=== PATIENT | female | born 1975 | race Caucasian/White ===

== ENCOUNTER 2016-04-20 10:50 | Inpatient (IN) | payer MEDICAID ==
[~2016-04-20] VITALS: Ht 162.6 cm; Wt 78.0 kg
--- NOTE | ~2016-04-20 | DS ---
PATIENT'S NAME: ROBERT BREWER [facility] AGE: 40 Y [address] ROOM: [id number] [place], [place] [id number] LOCATION: GPCU ADMIT DATE: 04/20/2016 Discharge Summary DISCHARGE DATE: 04/25/2016 FAMILY PHYSICIAN: Hallie Keenan MD ATTENDING PHYSICIAN: Clarke Huff PRIMARY DIAGNOSES: 1. Alcoholic liver cirrhosis with ascites, decompensated. 2. Pancytopenia. 3. Presumptive spontaneous bacterial peritonitis. 4. History of esophageal varices. 5. Left pleural effusion. 6. Substance abuse. 7. History of alcohol dependence. PRINCIPAL PROCEDURES: Done for the patient include abdominal paracentesis x4 by radiologist and also thoracocentesis by radiologist. LABORATORY DATA: On admission, lactic acid was 2.3, repeat was 1.6. Ammonia on admission was 42, repeat the next day was 45. WBC on admission was 3.3, prior to discharge was 2.1; H and H on admission were 10.0 and 33.1, prior to discharge were 8.9 and 30.7; platelet on admission was 71, prior to discharge was 68. Sodium on admission was 138, prior to discharge was 139; potassium on admission was 4.0, lowest level obtained was 3.4, prior to discharge was 4.5; bicarb on admission was 19, prior to discharge was 21; creatinine on admission was 0.8, prior to discharge was 0.6; BUN was also stable throughout the hospital stay. Liver function tests on admission, AST was 52, prior to discharge was 38; ALT was 33, was stable; alkaline phosphatase was 388 on admission, prior to discharge was 273, total bilirubin was 2.5 on admission, was stable throughout the hospital stay. Magnesium as well as was stable throughout the hospital stay. INR on admission was 1.2, highest level obtained was 1.4, prior to discharge was 1.2. UA: Leukocytes were 25, nitrite was negative, wbc was 0 to 2, bacteria negative, urine drug screen was negative. Amylase was 20, lipase was 61. Pleural fluid analysis; glucose level was 109, protein was 2.1, albumin was 1.0, LDH was 73. Procalcitonin on admission was 0.09, repeat the next day was 0.12. Ascitic fluid: Color yellow, rbc 5,000, wbc 302, neutrophil was 16. Alpha-fetoprotein level is pending. MICROBIOLOGY DATA: Blood culture, no growth up until discharge. HIV test is nonreactive. Urine culture contaminant. Gram stain body fluid, no organisms observed, no growth at 3 days. Pleural fluid, bacteria not observed. No growth at 3 days x2 bottles, and fungal elements not observed. RADIOLOGY DATA: Ultrasound-guided paracentesis was done. Ultrasound of the PATIENT'S NAME: ROBERT BREWER [facility] AGE: 40 Y [address] ROOM: [id number] [place] [id number] LOCATION: GPCU ADMIT DATE: 04/20/2016 Discharge Summary DISCHARGE DATE: 04/25/2016 FAMILY PHYSICIAN: Hallie Keenan MD ATTENDING PHYSICIAN: Clarke Huff abdomen is reported as cirrhosis with splenomegaly and ascites, cholelithiasis without ductal dilatation. Chest x-ray, large left pleural effusion with left basilar consolidation or atelectasis. There is mass effect pushing the heart to the right. Fullness at the left hilum. Consider CT to further evaluate. CT of chest and abdomen is reported as severe cirrhosis with splenomegaly and massive ascites. Very large left pleural effusion. Quite extensive varices in the upper left abdomen. X-ray of the chest next day, large left pleural effusion unchanged and had ultrasound-guided paracentesis x2. Chest x-ray post thoracocentesis, no pneumothorax. Repeat chest x-ray, clear right lung as before. Residual plate atelectasis in the left lower lobe just above the diaphragm but no pneumothorax visualized on the left. HOSPITAL COURSE: For history of present illness, please take a look at the H and P, which was done by Dr. Huff. The patient was admitted to Progressive Care Unit for decompensated alcoholic liver cirrhosis with massive ascites. On the first day of the hospital stay, the patient did get an abdominal paracentesis done, which drained out about 2900 mL and also did get a GI consult, who agreed with the abdominal paracentesis. The patient was presumptively also started on antibiotics of Levaquin for a presumptive spontaneous bacterial peritonitis though the peritoneal fluid analysis showed no growth up until discharge except for the white blood cell count, which was around 303. Neutrophil differential was normal. The patient also did get a Pulmonary consult for a large left pleural effusion, which was also drained under ultrasound guidance by the radiologist and about 1600 mL of fluid was drained out. Following the left thoracocentesis, the patient did complain of pleuritic chest pain, which was controlled with IV morphine. Subsequent day, the patient did get another abdominal paracentesis done, during which it did drain out 3700 mL of ascitic fluid. The procedure was well tolerated by the patient without intraoperative or postop complication. Following each abdominal paracentesis, she was given albumin. By the third day of the hospital stay, she did get another abdominal paracentesis done, during which time, it drained around 2100 mL of ascitic fluid. She was continued on her diuretics of Lasix and Aldactone. By the next day of the patient's hospital stay, she began to ambulate on the hallway. She had no problem with confusion throughout her hospital stay. Her bowels were moving pretty good with her lactulose. A day prior to discharge, she was started on MS Contin, which helped to control her pleuritic chest pain as well as her intermittent abdominal pain with less need for morphine. On the day of discharge, she had her fourth abdominal paracentesis done. Procedure was well tolerated by the patient, and thereafter, she was discharged home after vital signs were PATIENT'S NAME: ROBERT BREWER [facility] AGE: 40 Y [address] ROOM: [place] [id number] LOCATION: GPCU ADMIT DATE: 04/20/2016 Discharge Summary DISCHARGE DATE: 04/25/2016 FAMILY PHYSICIAN: Hallie Keenan MD ATTENDING PHYSICIAN: Clarke Huff. DISCHARGE INSTRUCTIONS: Includes 1500 mL per day of fluid restriction and PCP followup. She is to follow up with Dr. Keenan, who is going to be her new PCP in the next 3 to 4 days and GI Clinic followup in the next 1 week. They are planning to possibly do an EGD to evaluate the patient for probably an esophageal stricture. MEDICATIONS ON DISCHARGE: 1. Amitriptyline 150 mg p.o. q.h.s. 2. Clonidine 0.1 mg every 12 hours. 3. Iron sulfate 325 mg p.o. 3 times daily. 4. Folic acid 1 mg p.o. daily. 5. Lactulose 45 mL 4 times daily. 6. Propranolol 10 mg p.o. twice daily. 7. Lasix 40 mg p.o. q.a.m., dose change. 8. Levaquin 750 mg p.o. daily, maintenance antibiotic for spontaneous bacterial peritonitis. 9. Prilosec 20 mg p.o. twice daily. 10. K-Krystin 40 mEq p.o. q.a.m. 11. Rifaximin 550 mg p.o. twice daily. 12. Aldactone 100 mg p.o. daily. 13. Florastor 250 mg p.o. twice daily. 14. Topamax 25 mg p.o. twice daily. 15. Venlafaxine 75 mg p.o. twice daily. 16. Tramadol 50 mg p.o. q.8 hours p.r.n. 17. Albuterol 2 puffs nebs every 6 hours p.r.n. 18. MS Contin 15 mg p.o. daily p.r.n., new medication. 19. Thiamine 100 mg p.o. daily. DISPOSITION: She is going to be discharged home with Home Health. MD NEIDA CHUA/kwesi /[id number] d: 04/26/16 0119 t: 04/30/16 2223, DISCHARGE SUMMARY
--- NOTE | ~2016-04-20 | CON ---
PATIENT'S NAME: [facility] AGE: 40 Y [address] ROOM: [id number] [place], [place] [id number] [facility] ADMIT DATE: 04/20/2016 Consultation DISCHARGE DATE: FAMILY PHYSICIAN: PHYSICIAN, UNKNOWN ATTENDING PHYSICIAN: REBEKA MINOR REFERRING PHYSICIAN: Dayanara Trammell APRN REASON FOR CONSULTATION: Possible spontaneous bacterial peritonitis. HISTORY OF PRESENT ILLNESS: The patient is a pleasant 40-year-old white female who has a longstanding history of alcoholism. She states she has been sober for the last one year. She presents today with complaints of abdominal distention. She was suspected to have SBP and has been admitted for further management. These symptoms started about 24 hours ago. Her history dates back to at least 10 years ago. She was found to have liver cirrhosis. According to her, extensive workup was done. This was negative according to her for hepatitis. She also said she had liver biopsy done. Over the course of the last decade or so, she has had multiple admissions. She has had episodes of what appears to be spontaneous bacterial peritonitis. There is a questionable history of encephalopathy. She also has had upper GI bleeding and endoscopic evaluation and band ligation done in the past. She is currently managed in [place] in [facility] as well as [place]. Since this [place], she has had a very stormy course with multiple admissions for GI bleeding as well as possible episodes of encephalopathy. We have requested records of that for further review. At this time, the patient has no melena. She has not had any mental status changes. ALLERGIES: PENICILLIN AND SULFA. CURRENT MEDICATIONS: Include folic acid, potassium chloride, Xifaxan, omeprazole, furosemide, topiramate, amitriptyline, venlafaxine, vitamins, ProAir, propranolol, clonidine, tramadol p.r.n., Isordil, spironolactone, and lactulose. PAST SURGICAL HISTORY: Significant for internal fixation of lower extremity. She has also had umbilical hernia operated upon in the past. FAMILY HISTORY: She does not know much about her family history. She thinks her grandfather may have had some cancer, although she is not sure. She thinks her biologic father may have had some form of liver disease, but again she is not sure PATIENT'S NAME: [facility], [facility] AGE: 40 Y [address] ROOM: [id number] [place], [place] [address] LOCATION: GPCU ADMIT DATE: 04/20/2016 Consultation DISCHARGE DATE: FAMILY PHYSICIAN: PHYSICIAN, UNKNOWN ATTENDING PHYSICIAN: REBEKA MINOR about that. REVIEW OF SYSTEMS: She denies any history of cardiac disease. In addition, a 10-point review of system was done. This was found to be negative other than what was mentioned in the history of present illness and past medical history. PHYSICAL EXAMINATION: GENERAL: Today, she is alert and awake. She has no flapping tremors. No pallor, no icterus. VITAL SIGNS: She weighs 183 pounds. Vital signs done in the emergency room show a pulse of 94 per minute, respirations 24, temperature is 101.5, blood pressure is 119/59. HEAD AND ENT: Oral cavity is normal. Normocephalic. NECK: No masses are felt. No thyromegaly is felt. CARDIOVASCULAR: She does have a systolic ejection murmur over the aortic area. No carotid bruits are heard. Does reveal peripheral edema. MUSCULOSKELETAL: No obvious deformities are seen, however, she does have peripheral edema. CHEST: Good air entry bilaterally. No wheezing. No rhonchi. ABDOMEN: She is massively distended. She has dullness. She has dull flanks. She does have a scar from the previous umbilical hernia repair. LABORATORY DATA: Labs done today and ultrasound of the abdomen was done. It shows gallbladder with numerous gallstones. Biliary tree was normal. Spleen is grossly enlarged at 21 cm. Liver is fairly cirrhotic but no focal masses are seen. She had fluid cell count done, which shows a WBC of 303 16% neutrophils, and 30% lymphocytes, 46% monocytes. Albumin is 0.6 with serum albumin of 2.8. The serum ascitic albumin fluid gradient is 2.2, which is greater than 1.1, and suggestive of portal hypertension. She had CT chest done that showed a left pleural effusion and massive ascites. She had ultrasound guided paracentesis done, 2900 mL of dark fluid was removed. UA is essentially unremarkable. Influenza A and B is negative. Procalcitonin is 0.09, which is upper limit of normal. CBC shows WBC is 3.3, hemoglobin 10, hematocrit 33.1, platelet count is 71, INR is 1.2. Complete metabolic screen shows sodium 138, potassium 4.0, chloride is 105, bicarb is 19, BUN is 9, creatinine is 0.8, albumin is 2.8, bilirubin is 2.5, ALT of 33, AST is 52, alkaline phosphatase is 33. Venous ammonia is high at 42. Lactate is high at 2.3. IMPRESSION: The patient with a history of decompensated cirrhosis, likely alcohol induced. Presenting now with massive ascites. The ascitic fluid does not support a diagnosis of SBP, however, she has severe abdominal pain. I would suggest that we obtain serum, amylase, lipase. She does have a history of gallstones. Her PATIENT'S NAME: ROBERT BREWER [facility] AGE: 40 Y [address] ROOM: [id number] [place] [id number] LOCATION: GPCU ADMIT DATE: 04/20/2016 Consultation DISCHARGE DATE: FAMILY PHYSICIAN: PHYSICIAN, UNKNOWN ATTENDING PHYSICIAN: REBEKA MINOR increased bilirubin is likely because of liver parenchymal disease. However, biliary pathology cannot be ruled out. We will obtain her old records and other workup from the other facilities. In the meanwhile, she will continue with the antibiotics. She has been currently placed on levofloxacin, which is okay. The patient has massive ascites. We should continue to perform paracentesis p.r.n. We will also give her albumin at the time of this paracentesis. Her urine output needs to be carefully monitored. She also needs to be carefully monitored for HRS resulting because of SBP. Thank you once again for the courtesy of this consultation. We will be happy to follow the patient along with you. MD ARNIE YOUSIF/kwesi /[id number] d: 04/21/162 t: 04/21/16 1824, CONSULTATION REPORT
--- NOTE | ~2016-04-20 | HP ---
PATIENT'S NAME: ROBERT BREWER [facility] AGE: 40 Y [address] ROOM: [id number] [place], [place] [address] LOCATION: GPCU ADMIT DATE: 04/20/2016 History & Physical DISCHARGE DATE: FAMILY PHYSICIAN: PHYSICIAN, UNKNOWN ATTENDING PHYSICIAN: REBEKA MINOR DATE OF SERVICE: CHIEF COMPLAINT: Shortness of breath, associated with worsening ascites and diffuse abdominal pain. HISTORY OF PRESENT ILLNESS: This is a 40-year-old female with a known history of ascites, with a prior esophageal variceal bleeding in the past as well as the multiple spontaneous bacterial peritonitis episodes in the past according to the patient, treated in [place], [place]. According to the patient, her last episode of spontaneous bacterial peritonitis was a year ago, she is not sure which month. Last time, she had an esophageal variceal bleeding was in January 2016. She says that she gets regular paracentesis, usually twice a month, according to the patient. The patient is somewhat poor historian and does not know much about her past medical history or the exact days of events. Her primary surgical services manager, Dr. Rob York in [place], [place]. The story is that the patient says that last night she started feeling this pain in her abdomen diffusely associated with shortness of breath, some nausea, and some headache, but she did not vomit. Her ascites has been getting progressively bigger over the last few days. Because of the worsening shortness of breath, associated with diffuse abdominal pain and worsening ascites, the patient came here today for evaluation. The patient is alert and oriented x3. The patient denies any other symptoms or complaints. She denies any melena, hematochezia, hematemesis, coffee-grounds emesis, hematuria, or any recent GI bleeding except in January last year according to the patient. Over here currently when she arrived to our emergency room, her ammonia was 42, white blood cell 3.3, hemoglobin 10.0, hematocrit 33.1, platelets 71, lactic acid 2.3. Kidney function normal, creatinine 0.8, BUN 9, GFR more than 60. INR 1.2. Urinalysis was negative for UTI. The patient did have a fever here in the emergency room on arrival with a 101.3, heart rate 94, blood pressure 140/80, respiration rate was 18, saturation was 97% on room air. Examination in the emergency room was remarkable for a soft abdomen with visible moderate to large ascites and diffuse pain to palpation. However, there is no abdominal rigidity. I requested to have paracentesis performed which was already performed by the Radiology and 2.9 L were removed and also PATIENT'S NAME: ROBERT BREWER [facility] AGE: 40 Y [address] ROOM: [place] [address] LOCATION: GPCU ADMIT DATE: 04/20/2016 History & Physical DISCHARGE DATE: FAMILY PHYSICIAN: PHYSICIAN, UNKNOWN ATTENDING PHYSICIAN: REBEKA MINOR ascitic fluid was also sent for studies. The patient has allergy to penicillin, to sulfa from which she gets severe hives, therefore IV Levaquin was given right after the paracentesis. Currently, the patient came back from the paracentesis and we will be getting 8 g/L of ascitic fluid removal, therefore she required 25 g of 25% IV albumin. Currently, the patient is feeling much better regarding her shortness of breath, still with abdominal tenderness. Vital signs currently is blood pressure 110/70, heart rate 80, saturation still 98% on room air. She states that dyspnea has significantly improved. Her main complaint right now is abdominal pain. She restarted drinking alcohol about a year ago according to the patient. She was a heavy drinker daily since she was 21 years old. REVIEW OF SYSTEMS: As mentioned in the history of present illness. All other systems reviewed and negative except those mentioned in history of present illness. PAST MEDICAL HISTORY: I have already put a request to obtain medical records from the primary surgical services manager and also from the [facility] in [place] where she was recently hospitalized over there in January 2016, according to the patient for esophageal variceal bleeding. The patient herself told me that she has liver cirrhosis from alcohol use disorder. The patient denies to me any other past medical history at the moment. I will confirm with the medical records from the primary surgical services manager. The patient says that she rarely see her primary care physician. Therefore, I will get records from the [facility] and from the surgical services manager first. SOCIAL HISTORY: The patient was a former cigarette smoker, she quit in January 2016. She used to smoke about half pack per day of cigarettes since she was 13 years old. She was a heavy alcohol drinker before, she quit about a year ago. She used to drink daily with a different kinds of alcohol in large amount and since she was 21 years old. The patient was a former meth user, which she says she used to smoke on and off. Last time, she used was a few years ago. She states she has been sober since few years ago. She denies any IV drug use in the past. FAMILY HISTORY: Father had some kind of heart problem, but she could not remember all the details. Mother is healthy according to the patient. PAST SURGICAL HISTORY: PATIENT'S NAME: ROBERT BREWER [facility] AGE: 40 Y [address] ROOM: [address] [address] [facility] AD[facility] DATE: 04/20/2016 History & Physical DISCHARGE DATE: FAMILY PHYSICIAN: PHYSICIAN, UNKNOWN ATTENDING PHYSICIAN: REBEKA MINOR The patient has the left leg surgery in the past, details are not clear. PHYSICAL EXAMINATION: VITAL SIGNS: At the time of my dictation, temperature 99, blood pressure 110/80, heart rate 80, respirations 16, saturation 98% on room air. Pain 4 to 6/10, diffusely in the abdomen. GENERAL APPEARANCE: Alert and oriented x3. Currently, in no acute distress. HEENT: Pupils equal, round, and reactive to light. Extraocular muscles intact. Icteric sclerae in both eyes. Nasal turbinates are normal bilaterally. The skin is not jaundiced. Dry oral mucosa. NECK: No JVD. No cervical lymphadenopathy. No neck stiffness. RESPIRATORY: Clear to auscultation with decreased breath sounds on the left lower lung. CARDIOVASCULAR: Regular rate and rhythm. Normal S1, S2. No murmur, no rubs, and no gallops. ABDOMEN: Distended with ascites, soft, cannot hear any bowel sounds due to ascites, could not appreciate any mass, diffusely tender to palpation. No abdominal rigidity, no rebound tenderness. EXTREMITIES: No edema in upper or lower extremities. NEUROLOGICAL: Grossly nonfocal. SKIN: No ulcer, no rash, no cyanosis. Skin is not jaundiced. MUSCULOSKELETAL: No joint pain. No muscle pain. Range of motion intact. LABORATORY DATA: Lactic acid 2.3, ammonia 42. White blood cell 3.3, hemoglobin 10, hematocrit 33.1, MCV 98.2, platelets 71, glucose 97, BUN 9, creatinine 0.8. Sodium 138, potassium 4.0 chloride 105, CO2 19, calcium 8.1, total protein 7.8, albumin 2.8, AST 52, ALT 33, alkaline phosphatase 388, total bilirubin 2.5, anion gap 18, globulin 5.0, GFR more than 60. INR 1.2. PTT 31. Urinalysis negative for UTI. Ascitic fluid studies all pending currently. Influenza negative. Procalcitonin 0.09. IMAGING STUDIES: 1. Chest x-ray on admission showed large left pleural effusion with left basilar consolidation or atelectasis. There is mass effect, pushing the heart to the right. Fullness at the left hilum. Consider CT to evaluate. 2. CT of the chest, abdomen, and pelvis with contrast on admission shows severe cirrhosis with splenomegaly and massive ascites. Very large left pleural effusion. Quite extensive varices in the upper left abdomen. ASSESSMENT AND PLAN: 1. Likely spontaneous bacterial peritonitis: I said likely because currently the study from the ascitic fluid paracentesis is pending. PATIENT'S NAME: ROBERT BREWER [facility] AGE: 40 Y [address] ROOM: [place] [address] [facility] AD[facility] DATE: 04/20/2016 History & Physical DISCHARGE DATE: FAMILY PHYSICIAN: , UNKNOWN ATTENDING PHYSICIAN: REBEKA MINOR Based on the polymorphonuclear cells, if more than 250, then we have the diagnosis. Right now, the patient is getting IV Levaquin given that the patient states that she gets severe hives and skin break out from penicillin or sulfa. For the spontaneous bacterial peritonitis, even if the polymorphonuclear cells less than 250, given her presentation and her repeated episodes of spontaneous bacterial peritonitis in the past, I will still treat her for the spontaneous bacterial peritonitis, even if the polymorphonuclear cells are less than 250. The plan will be low- sodium diet, less than 2 g per day. Reconciled her home medication, she takes Aldactone and Lasix at home. I will continue that with holding parameter. Avoid any beta john or any NSAID or any MICHELLE inhibitor or ARBs. She is currently getting IV 25 g of 25% IV albumin given that she got a 2.9 L of ascitic fluid removed by the radiologist today. Blood cultures are pending. Urine culture is pending. I will consult for gastroenterology. I will address the home medication once the medication list is reconciled. I will check another chest x-ray tomorrow in the morning. I will repeat labs in the morning. I will repeat another basic metabolic panel tomorrow, with the kidney function later today. The ascitic fluid study sent for the culture for aerobic and anaerobic. Cell count and differential. Gram stain. Albumin. Protein. Glucose. LDH. Amylase. Bilirubin. I will also get a right upper quadrant ultrasound to better assess the liver. Start her on Florastor 250 mg p.o. b.i.d. And also obtain medical records from her primary surgical services manager and also from [facility] in [place] where she was recently hospitalized, last year. I will also consult pulmonology for a large left pleural effusion to see if she will require thoracocentesis. Pain control with IV morphine p.r.n. I will also get blood type and screen, given that she did have an esophageal variceal bleeding according to the patient back in last year, January 2016, in [facility]. She denies any recent GI bleeding this year. We do not have any prior labs to compare for the baseline for the hemoglobin. I will watch her closely. 2. Deep vein thrombosis prophylaxis: Compression devices. Time spent in care on the day of admission 45 minutes including chart review, interviewing the patient, examining the patient, addressing all the questions and concerns that the patient had. I also went over the plan of care with the patient. I have also spoken to the on-call surgical services manager Dr. Shipley regarding the penicillin allergy and we will go ahead and give the IV Levaquin after the paracentesis. Another option will be ciprofloxacin. The patient is currently getting IV Levaquin. PATIENT'S NAME: ROBERT BREWER [facility] AGE: 40 Y [address] ROOM: [address] [place] [id number] [facility] ADMIT DATE: 04/20/2016 History & Physical DISCHARGE DATE: FAMILY PHYSICIAN: PHYSICIAN, UNKNOWN ATTENDING PHYSICIAN: REBEKA MINOR MD CC/modl /[id number]: [id number] T: [id number] HISTORY & PHYSICAL
--- NOTE | ~2016-04-20 | ER ---
PATIENT'S NAME: [facility] AGE: 40 Y [address] ROOM: [place] [address] LOCATION: GPCU ADMIT DATE: 04/20/2016 ER/Outpatient Report DISCHARGE DATE: FAMILY PHYSICIAN: PHYSICIAN, UNKNOWN ATTENDING PHYSICIAN: REBEKA MINOR Time of arrival: 1050 hours. Time seen: 1100 hours. IDENTIFICATION: A 40-year-old female. CHIEF COMPLAINT: Abdominal pain. HISTORY OF PRESENT ILLNESS: The patient is a 40-year-old female, brought in by ambulance with increasing abdominal distention and pain. The patient was just discharged from [facility] 3 days ago after a prolonged stay and paracentesis of 5 L. The patient has a history of alcoholic liver cirrhosis and has been managed in [place], but came back to live here in [place] with her parents. She has increasing abdominal pain, nausea, vomiting, fever last night and shortness of breath. PAST MEDICAL HISTORY: ALLERGIES: SULFA AND PENICILLIN. PENICILLIN CAUSES HIVES. CURRENT MEDICATIONS: 1. Folic acid 1 mg daily. 2. KCl 20 mEq two tabs daily. 3. Xifaxan 550 mg b.i.d. 4. Omeprazole 20 mg b.i.d. 5. Furosemide 80 mg daily. 6. Topiramate 25 mg b.i.d. 7. Amitriptyline 150 mg at bedtime. 8. Venlafaxine 75 mg b.i.d. 9. CVS B1 100 mg daily. 10. ProAir p.r.n. 11. Propranolol 10 mg b.i.d. 12. Clonidine 0.1 mg b.i.d. 13. Tramadol 50 mg q.8 hours p.r.n. with a max of 150 mg daily. 14. Ferrous sulfate 325 mg t.i.d. 15. Spironolactone 100 mg daily. PATIENT'S NAME: [facility] AGE: 40 Y [address] ROOM: [place] [address] LOCATION: GPCU ADMIT DATE: 04/20/2016 ER/Outpatient Report DISCHARGE DATE: FAMILY PHYSICIAN: PHYSICIAN, UNKNOWN ATTENDING PHYSICIAN: REBEKA MINOR 16. Lactulose 45 mL q.i.d. MEDICAL PROBLEMS: Anxiety, bipolar, insomnia, alcoholic liver cirrhosis, PTSD, arteritis, chronic back pain, herniated disc, narcotic abuse, history of esophageal varices. PRIOR SURGERIES: Esophageal varices banded. We have requested records from [facility] that we have not yet received at the time of this dictation. SOCIAL HISTORY: The patient was living in [place], currently now living here with her parents. Tobacco use stopped before Penny. Alcohol use, last drink one year ago. Drug use, narcotic pain medication that is prescribed, but none other than that and they are trying to wean her off reportedly and then she was supposed to go to [place]. FAMILY HISTORY: Father with heart disease. REVIEW OF SYSTEMS: All systems reviewed and negative other than what is noted in the HPI. PHYSICAL EXAMINATION: VITAL SIGNS: Pulse 94, respirations 24, temp 101.5, blood pressure 119/59, sats 97%. GENERAL: A 40-year-old female, in mild distress. HEENT: Normocephalic, atraumatic. Ears: TMs translucent both ears. Eyes: Pupils equal and reactive to light and accommodation. Extraocular movements intact. The patient does have scleral icterus. Nose: Mucosa pink. No lesions. Mouth: No lesions. Pharynx benign. NECK: Supple. No lymphadenopathy. No nuchal rigidity. LUNGS: Clear to auscultation with diminished breath sounds in the left base. HEART: Regular rate and rhythm. No murmur, rub, or gallop. ABDOMEN: Very protuberant abdomen, distended with ascites. Positive bowel sounds. Diffusely tender to palpation. No rebound or guarding. No CVA tenderness. SKIN: Jaundiced and pale. NEURO: Patient is alert and oriented. No cranial nerve deficit. Motor strength 5/5 throughout. Sensation is intact to light touch. EXTREMITIES: No edema. LABORATORY DATA: UA; specific gravity 1.015, pH 6, leukocytes trace, 0-2 white cells. Culture PATIENT'S NAME: ROBERT BREWER [facility] AGE: 40 Y [address] ROOM: [id number] [place], [place] [address] [facility] AD[facility] DATE: 04/20/2016 ER/Outpatient Report DISCHARGE DATE: FAMILY PHYSICIAN: PHYSICIAN, UNKNOWN ATTENDING PHYSICIAN: REBEKA MINOR pending. Blood cultures x2 pending. Influenza A and B negative. Lactate elevated at 2.3. Sodium 138, potassium 4, chloride 105, CO2 19, BUN 9, creatinine 0.8, blood sugar 94. Albumin low at 2.8, globulin high at 5.0, total bilirubin 2.5, alkaline phosphatase 388, AST 52, ALT 33, ammonia level 42, procalcitonin 0.09. Hemoglobin 10, hematocrit 33.1, platelets 71. White count 3.3, INR 1.2. No recent values available for comparison. Two-view chest x-ray obtained showing large left pleural effusion with mass effect pushing the heart to the right. CT scan abdomen and pelvis with IV contrast; huge left pleural effusion and nearly completely fills the left hemithorax and displaces the mediastinum and heart to the right, small portion of the upper anterior left lung that is still aerated, severe cirrhosis of the liver with splenomegaly and perigastric varices. Massive ascites. Ultrasound-guided paracentesis per Dr. Conde was obtained with removal of 2900 mL of dark brown ascites. Abdominal ultrasound; cirrhosis with splenomegaly and ascites, cholelithiasis without ductal dilatation. IMPRESSION AND PLAN: 1. Systemic inflammatory response. Antibiotics were initiated to include Levaquin. 2. Large left pleural effusion, pneumonia cannot be excluded. The patient was started on Levaquin after cultures all obtained. 3. Bacterial peritonitis with increasing abdominal pain and fluid, therapeutic paracentesis as well as diagnostic fluid sent for culture per Dr. Conde, radiologist. 4. Severe cirrhosis of the liver. 5. Splenomegaly. 6. Quite extensive varices in the left upper abdomen. 7. Cholelithiasis with no ductal dilatation. 8. Thrombocytopenia. 9. Anemia. 10. Leukopenia. The patient remained hemodynamically stable here in the emergency room. She was initiated on IV fluids at 100 mL/h. Albumin 25% in 100 mL at 75 mL/h as ordered by Noel Amaya and patient was taken to the floor in stable but guarded condition. VALENCIA VILLALTA MD CAR/modl /[id number] d: 04/21/167 t: 04/21/16 1512, OUTPATIENT REPORT
--- NOTE | ~2016-04-20 | CON ---
PATIENT'S NAME: [facility] AGE: 40 Y [address] ROOM: [place] [address] LOCATION: GPCU ADMIT DATE: 04/20/2016 Consultation DISCHARGE DATE: 04/25/2016 FAMILY PHYSICIAN: Hallie Keenan MD ATTENDING PHYSICIAN: Clarke Huff DATE OF CONSULTATION: 04/21/2016 REFERRING PHYSICIAN: Dayanara Trammell APRN INDICATION: Pleural effusions. HISTORY OF PRESENT ILLNESS: This is a 40-year-old female with a history of alcoholic cirrhosis and ascites, status post multiple paracenteses, who came in with fever, shortness of breath, and worsening abdominal pain over the last few days. She reports nausea, but no cough, wheezing, hemoptysis, PND, orthopnea, or edema. She has a history of esophageal varices with bleed in January 2016 requiring hospitalization in [place], [place]. She just recently moved to [place] in last four days. She denies any previous history of lung or heart disease. She has a history of tobacco use since the age of 13, but quit in January 2016 using one pack per day. She also has a history of marijuana and methamphetamine use, she last reports using three years ago. She has a history of alcohol abuse since the age of 21, and last used one year ago. Her CT scan shows a large left pleural effusion with atelectasis and massive ascites. She had a paracentesis performed yesterday with 2.9 L removed. She still reports shortness of breath with abdominal pain, and had a slight non- productive cough this morning. PAST MEDICAL HISTORY: Includes 1. Alcoholic liver cirrhosis as well as esophageal varices. 2. Anxiety. 3. Bipolar. 4. PTSD post-traumatic stress disorder. 5. Chronic back pain. 6. Insomnia. FAMILY HISTORY: Her father has heart disease, but no family history of lung disease. SOCIAL HISTORY: PATIENT'S NAME: [facility] AGE: 40 Y [address] ROOM: [place] [address] LOCATION: GPCU ADMIT DATE: 04/20/2016 Consultation DISCHARGE DATE: 04/25/2016 FAMILY PHYSICIAN: Hallie Keenan MD ATTENDING PHYSICIAN: Clarke Huff Immigration History: The patient was previously living in [place], and recently moved here to [place] in the last four days. Habits: She was a previous tobacco user since the age of 13, up until January 2016 smoking one pack per day. She was a previous excessive alcohol user, and her last drink was one year ago. She previously used narcotics of marijuana and methamphetamine, with her last use being over three years ago. ALLERGIES: SEE MAR. MEDICATIONS: See MAR. REVIEW OF SYSTEMS: A twelve-point review of systems was negative except for what is noted in the HPI history of present illness. PHYSICAL EXAMINATION: VITAL SIGNS: Blood pressure was 121/56, pulse was 83, respirations were 17, and temperature was 98.6. She is 96% on room air. GENERAL: This is a 40-year-old female, who is well developed and well nourished, alert and oriented x3, and appears in mild acute distress due to pain. HEENT: Head: Normocephalic and atraumatic. Eyes: Clear. NECK: Supple. No adenopathy. No carotid bruits or JVD jugular venous distention. LUNGS: Decreased breath sounds with dullness on percussion at the left lung base. HEART: Regular rate and rhythm without murmur, gallop, or rub. ABDOMEN: Positive significant distention of the abdomen, as well as diffuse tenderness. EXTREMITIES: No cyanosis, clubbing, or edema. DIAGNOSTIC STUDIES: Bedside ultrasound performed at the bedside revealed a large left pleural effusion without loculation, with free-floating left lung. ASSESSMENT: 1. 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 Question infected. No acute respiratory failure. 2. Ascites is still very significant and precludes the patient from sitting upright. 3. End-stage liver disease due to alcoholic cirrhosis. 4. Fever. PATIENT'S NAME: ROBERT BREWER [facility] AGE: 40 Y [address] ROOM: [address] [place] [address] LOCATION: GPCU ADMIT DATE: 04/20/2016 Consultation DISCHARGE DATE: 04/25/2016 FAMILY PHYSICIAN: Hallie Keenan MD ATTENDING PHYSICIAN: Clarke Huff PLAN: We will schedule her paracentesis first, and then have IR Interventional Radiology subsequently perform a left thoracentesis as well if the patient can then sit upright at that time. We will order pleural fluid studies, and continue with antibiotics for possible SBP spontaneous bacterial peritonitis. Further recommendations will be made, pending the course of her stay. Thank you for the consult and opportunity to participate in patient's care. DAYANARA TRAMMELL APRN FOR [facility] CLARK MD [facility]/modl /[id number] d: 05/09/167 t: 05/10/16 1631, CONSULTATION REPORT
[2016-04-20 12:14] LABS: HEMATOCRIT 33.1 % (33.0-46.0); MCH 29.7 pg (27.0-34.0); MCHC 30.2 gm/dL (32.0-36.5); MCV 98.2 fl (83.0-98.0); PLATELET COUNT 71 K/uL (150-450); RDW-CV 23.5 % (11.9-14.6); WBC 3.3 K/uL (4.0-11.0)
[2016-04-20 12:17] LABS: RBC 3.37 M/uL (3.50-5.50)
[2016-04-20 12:25] LABS: INR - (THERAPEUTIC) 1.2 (0.9-1.1); PROTIME 12.2 SECONDS (9.6-11.1); PTT 31 SECONDS (25-32)
[2016-04-20 12:37] LABS: ALBUMIN 2.8 gm/dL (3.5-5.0); ALK PHOS 388 IU/L (33-138); ALT 33 IU/L (12-78); AST 52 IU/L (10-40); BLOOD UREA NITROGEN 9 mg/dL (6-24); CALCIUM 8.1 mg/dL (8.5-10.5); CHLORIDE 105 mMol/L (96-110); CO2 19 mMol/L (22-32); CREATININE 0.8 mg/dL (0.5-1.1); ESTIMATED GFR (MDRD EQUATION) > 60; SODIUM 138 mMol/L (135-145); TOTAL BILIRUBIN 2.5 mg/dL (0.0-1.5); TOTAL PROTEIN 7.8 g/dL (6.0-8.4)
[2016-04-20 12:52] LABS: ABSOLUTE NEUTROPHIL CT (ANC) 3.1 K/uL (1.8-7.8); BANDED NEUTROPHIL # 0.7 K/uL (0.0-0.1); BANDED NEUTROPHILS % 22 %; LYMPHOCYTE # 0.2 K/uL (0.8-4.0); LYMPHOCYTE % 5 %; SEGMENTED NEUTROPHIL # 2.4 K/uL (1.8-7.8); SEGMENTED NEUTROPHIL % 73 %
[2016-04-20 13:49] LABS: BLOOD URINE NEGATIVE /UL (NEGATIVE); COLOR URINE AMBER (YELLOW); GLUCOSE URINE NEGATIVE (NEGATIVE); KETONE URINE 5 mg/dL (NEGATIVE); LEUKOCYTES URINE 25 /UL (NEGATIVE); NITRITE URINE NEGATIVE (NEGATIVE); PROTEIN URINE 15 mg/dL (NEGATIVE); SPEC GRAVITY URINE 1.015 (1.003-1.035); TURBIDITY URINE CLEAR (CLEAR); UROBILINOGEN URINE 8 mg/dL (NORMAL)
[2016-04-20 14:06] LABS: BACTERIA URINE NEGATIVE (NEGATIVE); EPITHELIAL URINE RARE #/HPF (NEGATIVE); MUCUS URINE 2+ (NEGATIVE); RBC URINE RARE #/HPF (NEGATIVE); WBC URINE 0-2 #/HPF (NEGATIVE)
[2016-04-20 15:03] LABS: PERITONEAL FLUID TURBIDITY CLEAR (CLEAR)
[2016-04-20 15:11] LABS: AMYLASE - FLUID 7 IU/L
[2016-04-20 16:13] LABS: % PERITONEAL FLUID EOS 8 % (0-0); % PERITONEAL FLUID MONO/MACRO 46 % (0-0)
[2016-04-20 16:14] LABS: % PERITONEAL FLUID NEUT 16 % (0-25)
[2016-04-20] MEDS ORDERED: KLOR-CON M2020 MEQ PO (17:19)
[2016-04-20] MEDS ORDERED: INDERAL10 MG PO (17:21)
[2016-04-20] MEDS ORDERED: ALDACTONE100 MG PO (17:21)
[2016-04-20] MEDS ORDERED: VENLAFAXINE HCL75 MG PO (17:22)
[2016-04-20] MEDS ORDERED: XIFAXAN550 MG PO (17:22)
[2016-04-20] MEDS ORDERED: VITAMIN B-1100 M1 PO (17:23)
[2016-04-20] MEDS ORDERED: AMITRIPTYLINE100 MG PO (17:32)
[2016-04-20] MEDS ORDERED: ULTRAM50 MG PO (17:33)
[2016-04-20] MEDS ORDERED: LASIX80 MG PO (17:33)
[2016-04-20] MEDS ORDERED: PRILOSEC20 MG PO (17:34)
[2016-04-20] MEDS ORDERED: FEOSOL325 MG PO (17:34)
[2016-04-20] MEDS ORDERED: FOLIC ACID1 MG PO (17:34)
[2016-04-20] MEDS ORDERED: TOPAMAX25 MG PO (17:35)
[2016-04-20] MEDS ORDERED: PROVENTIL OR V6.7 GM INH (17:36)
[2016-04-20] MEDS ORDERED: LACTULOSE10 GM/15 M PO (17:39)
[2016-04-20] MEDS ORDERED: HALLS3.2 MG (17:40)
[2016-04-20 19:14] LABS: ANION GAP 15.9 (10.0-19.0); BLOOD UREA NITROGEN 9 mg/dL (6-24); CALCIUM 7.8 mg/dL (8.5-10.5); CHLORIDE 103 mMol/L (96-110); CO2 20 mMol/L (22-32); CREATININE 0.8 mg/dL (0.5-1.1); ESTIMATED GFR (MDRD EQUATION) > 60; PHOSPHORUS 2.1 mg/dL (2.5-4.9); POTASSIUM 3.9 mMol/L (3.7-5.1)
[2016-04-20 19:27] LABS: SODIUM 135 mMol/L (135-145)
[2016-04-20 21:13] LABS: AMPHETAMINE NEGATIVE (NEGATIVE); BARBITURATE NEGATIVE (NEGATIVE); COCAINE NEGATIVE (NEGATIVE); OPIATES NEGATIVE (NEGATIVE)
[2016-04-21 04:48] LABS: HEMATOCRIT 27.2 % (33.0-46.0); HEMOGLOBIN 8.1 g/dL (11.0-15.0); MCH 29.9 pg (27.0-34.0); MCHC 29.8 gm/dL (32.0-36.5); MCV 100.4 fl (83.0-98.0); RBC 2.71 M/uL (3.50-5.50); RDW-CV 23.1 % (11.9-14.6); WBC 2.1 K/uL (4.0-11.0)
[2016-04-21 04:50] LABS: PLATELET COUNT 51 K/uL (150-450)
[2016-04-21 04:54] LABS: INR - (THERAPEUTIC) 1.4 (0.9-1.1)
[2016-04-21 04:57] LABS: ALBUMIN 2.5 gm/dL (3.5-5.0); ALK PHOS 273 IU/L (33-138); ALT 27 IU/L (12-78); ANION GAP 17.6 (10.0-19.0); AST 38 IU/L (10-40); BLOOD UREA NITROGEN 10 mg/dL (6-24); CALCIUM 7.6 mg/dL (8.5-10.5); CHLORIDE 104 mMol/L (96-110); CO2 18 mMol/L (22-32); CREATININE 0.8 mg/dL (0.5-1.1); ESTIMATED GFR (MDRD EQUATION) > 60; MAGNESIUM 2.1 mg/dL (1.3-2.6); PHOSPHORUS 3.3 mg/dL (2.5-4.9); POTASSIUM 3.6 mMol/L (3.7-5.1); SODIUM 136 mMol/L (135-145); TOTAL BILIRUBIN 2.5 mg/dL (0.0-1.5); TOTAL PROTEIN 6.4 g/dL (6.0-8.4)
[2016-04-21 05:02] LABS: PROTIME 15.3 SECONDS (9.6-11.1)
[2016-04-21 05:27] LABS: ABSOLUTE NEUTROPHIL CT (ANC) 1.7 K/uL (1.8-7.8); BANDED NEUTROPHIL # 0.8 K/uL (0.0-0.1); BANDED NEUTROPHILS % 37 %; LYMPHOCYTE # 0.4 K/uL (0.8-4.0); LYMPHOCYTE % 21 %; SEGMENTED NEUTROPHIL # 0.9 K/uL (1.8-7.8); SEGMENTED NEUTROPHIL % 42 %
[2016-04-21 16:22] LABS: HEMATOCRIT 31.6 % (33.0-46.0); HEMOGLOBIN 9.5 g/dL (11.0-15.0)
[2016-04-22 04:09] LABS: HEMATOCRIT 29.2 % (33.0-46.0); MCH 30.3 pg (27.0-34.0); MCHC 30.8 gm/dL (32.0-36.5); MCV 98.3 fl (83.0-98.0); MPV 11.7 fl (9.4-12.4); RBC 2.97 M/uL (3.50-5.50); RDW-CV 22.4 % (11.9-14.6); WBC 2.3 K/uL (4.0-11.0)
[2016-04-22 04:16] LABS: PLATELET COUNT 55 K/uL (150-450)
[2016-04-22 04:21] LABS: INR - (THERAPEUTIC) 1.2 (0.9-1.1); PROTIME 12.7 SECONDS (9.6-11.1)
[2016-04-22 04:24] LABS: ANION GAP 13.3 (10.0-19.0); BLOOD UREA NITROGEN 11 mg/dL (6-24); CALCIUM 7.6 mg/dL (8.5-10.5); CHLORIDE 106 mMol/L (96-110); CO2 21 mMol/L (22-32); CREATININE 0.8 mg/dL (0.5-1.1); ESTIMATED GFR (MDRD EQUATION) > 60; MAGNESIUM 2.2 mg/dL (1.3-2.6); POTASSIUM 3.3 mMol/L (3.7-5.1); SODIUM 137 mMol/L (135-145)
[2016-04-22 04:52] LABS: ABSOLUTE NEUTROPHIL CT (ANC) 1.7 K/uL (1.8-7.8); BANDED NEUTROPHIL # 0.6 K/uL (0.0-0.1); BANDED NEUTROPHILS % 28 %; LYMPHOCYTE # 0.5 K/uL (0.8-4.0); LYMPHOCYTE % 20 %; SEGMENTED NEUTROPHIL # 1.1 K/uL (1.8-7.8); SEGMENTED NEUTROPHIL % 46 %
[2016-04-23 04:12] LABS: HEMATOCRIT 33.7 % (33.0-46.0); HEMOGLOBIN 9.8 g/dL (11.0-15.0); MCH 29.3 pg (27.0-34.0); MCHC 29.1 gm/dL (32.0-36.5); MCV 100.6 fl (83.0-98.0); RBC 3.35 M/uL (3.50-5.50); RDW-CV 22.5 % (11.9-14.6); WBC 2.2 K/uL (4.0-11.0)
[2016-04-23 04:15] LABS: PLATELET COUNT 59 K/uL (150-450)
[2016-04-23 04:25] LABS: ANION GAP 14.7 (10.0-19.0); BLOOD UREA NITROGEN 9 mg/dL (6-24); CALCIUM 7.8 mg/dL (8.5-10.5); CHLORIDE 108 mMol/L (96-110); CO2 19 mMol/L (22-32); CREATININE 0.7 mg/dL (0.5-1.1); ESTIMATED GFR (MDRD EQUATION) > 60; MAGNESIUM 2.1 mg/dL (1.3-2.6); POTASSIUM 3.7 mMol/L (3.7-5.1); SODIUM 138 mMol/L (135-145)
[2016-04-23 04:43] LABS: ABSOLUTE NEUTROPHIL CT (ANC) 1.5 K/uL (1.8-7.8); BANDED NEUTROPHIL # 0.6 K/uL (0.0-0.1); BANDED NEUTROPHILS % 26 %; LYMPHOCYTE # 0.4 K/uL (0.8-4.0); LYMPHOCYTE % 19 %; MONOCYTE # 0.1 K/uL (0.0-1.0); SEGMENTED NEUTROPHIL % 44 %
[2016-04-24 04:05] LABS: BASOPHIL % 0.9 %; EOSINOPHIL # 0.1 K/uL (0.0-0.5); EOSINOPHIL % 6.5 %; HEMATOCRIT 31.2 % (33.0-46.0); HEMOGLOBIN 9.6 g/dL (11.0-15.0); LYMPHOCYTE # 0.5 K/uL (0.8-4.0); LYMPHOCYTE % 24.3 %; MCH 29.9 pg (27.0-34.0); MCHC 30.8 gm/dL (32.0-36.5); MCV 97.2 fl (83.0-98.0); MONOCYTE # 0.3 K/uL (0.0-1.0); MONOCYTE % 12.1 %; NEUTROPHIL # (ANC) 1.2 K/uL (1.8-7.8); NEUTROPHIL % 56.2 %; NRBC % 0 /100WBC (0-0.00); PLATELET COUNT 68 K/uL (150-450); RBC 3.21 M/uL (3.50-5.50); RDW-CV 22.2 % (11.9-14.6); WBC 2.1 K/uL (4.0-11.0)
[2016-04-24 04:13] LABS: INR - (THERAPEUTIC) 1.2 (0.9-1.1); PROTIME 12.5 SECONDS (9.6-11.1)
[2016-04-24 04:18] LABS: ANION GAP 16.4 (10.0-19.0); BLOOD UREA NITROGEN 10 mg/dL (6-24); CALCIUM 7.9 mg/dL (8.5-10.5); CHLORIDE 103 mMol/L (96-110); CO2 21 mMol/L (22-32); CREATININE 0.7 mg/dL (0.5-1.1); ESTIMATED GFR (MDRD EQUATION) > 60; MAGNESIUM 2.2 mg/dL (1.3-2.6); POTASSIUM 3.4 mMol/L (3.7-5.1); SODIUM 137 mMol/L (135-145)
[2016-04-25 03:20] LABS: HEMATOCRIT 30.7 % (33.0-46.0); HEMOGLOBIN 8.9 g/dL (11.0-15.0)
[2016-04-25 03:35] LABS: ANION GAP 15.5 (10.0-19.0); BLOOD UREA NITROGEN 13 mg/dL (6-24); CALCIUM 7.9 mg/dL (8.5-10.5); CHLORIDE 107 mMol/L (96-110); CO2 21 mMol/L (22-32); CREATININE 0.6 mg/dL (0.5-1.1); ESTIMATED GFR (MDRD EQUATION) > 60; MAGNESIUM 2.2 mg/dL (1.3-2.6); SODIUM 139 mMol/L (135-145)
[2016-04-25 03:36] LABS: POTASSIUM 4.5 mMol/L (3.7-5.1)
[2016-04-25] MEDS ORDERED: LEVAQUIN750 MG PO (15:49)
[2016-04-25] MEDS ORDERED: FLORASTOR250 MG PO (15:53)
[2016-04-25] MEDS ORDERED: MS CONTIN15 MG PO (15:57)
== END 2016-04-25 17:35 | disposition disaster alternative care site (69) | DRG 372 ==
LOC: GMED 10:50 → GPCU 14:43
PROVIDERS: Family Medicine; Hospitalist; ADMIT Internal Medicine
PROC: 0W9G3ZZ Drainage of Peritoneal Cavity, Percutaneous Approach (ICD-10-PCS; principal; 2016-04-20)
PROC: 0W9G3ZZ Drainage of Peritoneal Cavity, Percutaneous Approach (ICD-10-PCS; 2016-04-21)
PROC: 0W9B3ZX Drainage of Left Pleural Cavity, Percutaneous Approach, Diagnostic (ICD-10-PCS; 2016-04-21)
PROC: 0W9G3ZZ Drainage of Peritoneal Cavity, Percutaneous Approach (ICD-10-PCS; 2016-04-22)
PROC: 0W9G3ZZ Drainage of Peritoneal Cavity, Percutaneous Approach (ICD-10-PCS; 2016-04-25)
DX: K65.2 Spontaneous bacterial peritonitis (principal); D61.818 Other pancytopenia; I85.00 Esophageal varices without bleeding; Z87.891 Personal history of nicotine dependence; K70.31 Alcoholic cirrhosis of liver with ascites; F10.20 Alcohol dependence, uncomplicated; F19.10 Other psychoactive substance abuse, uncomplicated
CPT/HCPCS: A9270; C1751; G0480; J1956; J2270; J2405; J7050; J7060; P9047

== ENCOUNTER → 2016-04-20 | Outpatient (CLI) | payer MEDICAID ==
[~2016-04-20] MED LIST: ALDACTONE100 MG PO; AMITRIPTYLINE100 MG PO; CATAPRES0.1 MG PO; CERTAVITE-ANTI1 EACH PO; DULCOLAX5 MG PO; FEOSOL325 MG PO; FLORASTOR250 MG PO; FOLIC ACID1 MG PO; HALLS3.2 MG; INDERAL10 MG PO; KLONOPIN0.5 MG PO; KLOR-CON M2020 MEQ PO; LACTULOSE10 GM/15 M PO; LAMICTAL25 MG PO; LASIX80 MG PO; LEVAQUIN 750 M750 MG PO; LEVAQUIN750 MG PO; LEVOTHROID (SY25 MCG PO; LOVENOX 8080 MG/0.8 SUB-Q; MS CONTIN15 MG PO; PRILOSEC20 MG PO; PROTONIX40 MG PO; PROVENTIL OR V6.7 GM INH; THIAMINE HCL100 MG PO; TOPAMAX25 MG PO; ULTRAM50 MG PO; VENLAFAXINE HCL75 MG PO; VITAMIN B-1100 M1 PO; XIFAXAN550 MG PO; ZOFRAN4 MG PO
== END | disposition disaster alternative care site (69) ==
LOC: GAMB 10:36 → GMED 10:36
DX: R14.0 Abdominal distension (gaseous) (principal); R19.37 Generalized abdominal rigidity; K74.60 Unspecified cirrhosis of liver; R06.02 Shortness of breath; Z79.2 Long term (current) use of antibiotics; Z79.899 Other long term (current) drug therapy; Z88.0 Allergy status to penicillin; Z88.1 Allergy status to other antibiotic agents
CPT/HCPCS: A0425; A0429

== ENCOUNTER → 2016-04-29 | Outpatient (CLI) | payer MEDICAID | END | disposition disaster alternative care site (69) | LOC: LGSMG 17:16 | DX: K74.60 Unspecified cirrhosis of liver (principal); R18.8 Other ascites ==

== ENCOUNTER 2016-05-07 21:03 | Emergency (ER) | payer MEDICAID ==
--- NOTE | ~2016-05-07 | OR ---
PATIENT'S NAME: ROBERT BREWER [facility] AGE: 40 Y [address] ROOM: [place] [address] LOCATION: ED ADMIT DATE: 05/07/2016 OR/Procedure Report DISCHARGE DATE: 05/07/2016 FAMILY PHYSICIAN: Hallie Keenan MD ATTENDING PHYSICIAN: Davis Mittal SURGEON: Davis Mittal MD LIVESTOCK BUYER: DATE OF PROCEDURE: 05/07/2016 TIME: 2103 hours. The patient was initially seen by Gustavo. I was consulted to perform the procedure. The patient has a history of alcoholic cirrhosis and recurrent ascites. She has had to have peritoneal fluid drained several times in the past. Most recently, about 2 weeks ago, she is in with complaint of a distended abdomen that is causing shortness of breath. On exam, her abdomen is quite distended and tense. Dull to percussion. Minimally tender diffusely. Ultrasound revealed no evidence of adhesions. There was good layer of intraperitoneal fluid overlying any bowel. Paracentesis was performed and approximately 5 L of yellow cloudy peritoneal fluid was drained. The patient had improvement and she tolerated the procedure well. There is no blood loss. DAVIS MITTAL MD JDB/modl /[id number] d: 05/09/16 0437 t: 06/06/16 0954, OPERATIVE SUMMARY
--- NOTE | ~2016-05-07 | ER ---
PATIENT'S NAME: ROBERT [facility] AGE: 40 Y [address] ROOM: [place], [place] [address] LOCATION: ED ADMIT DATE: 05/07/2016 ER/Outpatient Report DISCHARGE DATE: 05/07/2016 FAMILY PHYSICIAN: Hallie Keenan MD ATTENDING PHYSICIAN: Davis Slade CORRECTED PATIENT ACCOUNT INFORMATION 05/12/16 AO Time of Arrival: 2103 hours. Time of Evaluation: 2118 hours. CHIEF COMPLAINT: Abdominal swelling. HISTORY OF PRESENT ILLNESS: This is a 40-year-old female, who presents to the ER, who states she has alcohol-induced liver cirrhosis and she has had increased swelling of her abdomen over the past couple of weeks. The patient states she was just admitted to the hospital for this few weeks ago and she states they had to drain her abdomen 3 times during that hospital stay. She recently moved here from [place] and had been in and out of the hospital in [place] since January. They state that she is needing liver transplant, but she has to go through rehab on her prescription drug use before she can be placed on the transplant list. She does not believe she has been running any fevers. She has had no troubles with urination, but has had some looser stools. Last bowel movement was today. She does feel nauseated from this. She feels like her abdomen is tight and it is making her feel short of breath. She states that she has been using her home medications as directed. She denies any other problems at this time. ALLERGIES: PENICILLIN AND SULFA. MEDICATIONS: Please see medication list nurse's notes. PAST MEDICAL HISTORY: Anxiety, bipolar, insomnia, alcoholic liver cirrhosis, PTSD, arteritis, chronic back pain, herniated disk, narcotic abuse, and history of esophageal varices. PRIOR SURGERIES: Esophageal varices that have been banded. SOCIAL HISTORY: She just moved to [place] to live with her parents. She was living in [facility]. She states her last drink was over a year ago. She is being weaned off PATIENT'S NAME: [facility]ERT [facility] AGE: 40 Y [address] ROOM: [place], [place] [address] LOCATION: ED ADMIT DATE: 05/07/2016 ER/Outpatient Report DISCHARGE DATE: 05/07/2016 FAMILY PHYSICIAN: Hallie Keenan MD ATTENDING PHYSICIAN: Davis Slade her tramadol by her primary care physician. She states she uses no other narcotics at this time. REVIEW OF SYSTEMS: A 10-point review of systems was completed and was negative with the exception as discussed in the HPI. PHYSICAL EXAMINATION: VITAL SIGNS: Height 5 feet and 4 inches stated, weight 88.7 kg taken, blood pressure is 119/71, pulse 74, respirations 26, temperature 99.2 degrees tympanically, and saturations 100% on room air. Adrienne Coma Score is 15. GENERAL: Alert, calm, well-developed female, in moderate distress due to the size of her abdomen. HEENT: Head: Normocephalic. Eyes: Pupils are equal and reactive to light. She does display moist mucous membranes. LUNGS: Clear to auscultation, but she does appear to be short of breath. HEART: Regular rate and rhythm. ABDOMEN: Very distended with ascites. She does have bowel sounds noted on all 4 quadrants. She is diffusely tender to palpation in all 4 quadrants. She has no rebound or guarding noted. SKIN: Her skin is slightly jaundiced and pale. NEURO: Cranial nerves II through XII grossly intact. The patient is alert and oriented. EXTREMITIES: No edema. She does have full range of motion of all limbs. LABORATORY DATA AND X-RAYS: CBC: White count is 1.4, hemoglobin is 10.3, platelets 60, and ANC is 0.9. Pro-time is 12.0. INR is 1.1. Procalcitonin is less than 0.05. CMS: Potassium is 3.5, glucose is 56, calcium 7.8, albumin 2.7, A/G ratio 0.6, alkaline phosphatase is 313, AST is 39, ALT is 27, estimated GFR is 60, ammonia level is 42, and lactate is 1.7. IMPRESSION: 1. Abdominal distention due to ascites from alcohol induced liver cirrhosis. 2. Leukopenia. 3. Anemia. 4. Thrombocytopenia. ASSESSMENT AND PLAN: The patient's chart was reviewed. Discussed the patient's care with Dr. Slade. Dr. Slade also evaluated the patient. Dr. Slade did do an informed consent for paracentesis of her abdomen. Please see his dictation for that procedure. We did start an IV here in the emergency room. The patient did receive 0.5 mg of Dilaudid and 4 mg of Zofran. The patient did tolerate this well. Dr. Slade did remove approximately 5 L of fluid from her abdomen. He PATIENT'S NAME: [facility]ERT [facility] AGE: 40 Y [address] ROOM: [place] [address] LOCATION: ED ADMIT DATE: 05/07/2016 ER/Outpatient Report DISCHARGE DATE: 05/07/2016 FAMILY PHYSICIAN: Hallie Keenan MD ATTENDING PHYSICIAN: Davis Slade did send this down for culture. The patient will be dismissed home. She needs to follow up with her primary care physician in 3 to 7 days, monitor her symptoms closely, and follow up to the emergency room if any of her symptoms worsen. The patient understands and agrees with care. CHUY ANGULO PA-C FOR MD JOELLEN COLEMAN/kwesi /[id number] CORRECTED PATIENT ACCOUNT INFORMATION 05/12/16 AO d: t: 05/12/16 2342, OUTPATIENT REPORT
[~2016-05-07 21:03] MED LIST changes: -CATAPRES0.1 MG PO; -CERTAVITE-ANTI1 EACH PO; -DULCOLAX5 MG PO; -KLONOPIN0.5 MG PO; -LAMICTAL25 MG PO; -LEVAQUIN 750 M750 MG PO; -LEVOTHROID (SY25 MCG PO; -LOVENOX 8080 MG/0.8 SUB-Q; -PROTONIX40 MG PO; -THIAMINE HCL100 MG PO; -ZOFRAN4 MG PO
[2016-05-07 22:13] LABS: HEMATOCRIT 33.5 % (33.0-46.0); HEMOGLOBIN 10.3 g/dL (11.0-15.0); MCH 32.4 pg (27.0-34.0); MCHC 30.7 gm/dL (32.0-36.5); MPV 11.7 fl (9.4-12.4); PLATELET COUNT 60 K/uL (150-450); RBC 3.18 M/uL (3.50-5.50); RDW-CV 23.5 % (11.9-14.6)
[2016-05-07 22:14] LABS: MCV 105.3 fl (83.0-98.0); WBC 1.4 K/uL (4.0-11.0)
[2016-05-07 22:24] LABS: INR - (THERAPEUTIC) 1.1 (0.9-1.1); PTT 30 SECONDS (25-32)
[2016-05-07 22:32] LABS: ALBUMIN 2.7 gm/dL (3.5-5.0); ALK PHOS 313 IU/L (33-138); ALT 27 IU/L (12-78); ANION GAP 13.5 (10.0-19.0); AST 39 IU/L (10-40); BLOOD UREA NITROGEN 8 mg/dL (6-24); CALCIUM 7.8 mg/dL (8.5-10.5); CHLORIDE 109 mMol/L (96-110); CO2 25 mMol/L (22-32); CREATININE 0.7 mg/dL (0.5-1.1); ESTIMATED GFR (MDRD EQUATION) > 60; POTASSIUM 3.5 mMol/L (3.7-5.1); SODIUM 144 mMol/L (135-145)
[2016-05-07 22:39] LABS: TOTAL BILIRUBIN 1.5 mg/dL (0.0-1.5)
[2016-05-07 22:43] LABS: ABSOLUTE NEUTROPHIL CT (ANC) 0.9 K/uL (1.8-7.8); BANDED NEUTROPHIL # 0.1 K/uL (0.0-0.1); BANDED NEUTROPHILS % 7 %; LYMPHOCYTE # 0.3 K/uL (0.8-4.0); LYMPHOCYTE % 22 %; MONOCYTE # 0.1 K/uL (0.0-1.0); SEGMENTED NEUTROPHIL # 0.8 K/uL (1.8-7.8); SEGMENTED NEUTROPHIL % 59 %
[2016-05-07 23:47] LABS: PERITONEAL FLUID TURBIDITY 2+ (CLEAR)
[2016-05-08 00:30] LABS: % PERITONEAL FLUID MONO/MACRO 30 % (0-0); % PERITONEAL FLUID NEUT 23 % (0-25)
== END 2016-05-07 23:33 | disposition disaster alternative care site (69) ==
LOC: GMED 21:03
PROVIDERS: Physician Assistant Medical
PROC: 0W9G3ZZ Drainage of Peritoneal Cavity, Percutaneous Approach (ICD-10-PCS; principal; 2016-05-07)
DX: K70.31 Alcoholic cirrhosis of liver with ascites (principal); R14.0 Abdominal distension (gaseous); D72.819 Decreased white blood cell count, unspecified; D64.9 Anemia, unspecified; D69.6 Thrombocytopenia, unspecified; Z88.0 Allergy status to penicillin; Z88.2 Allergy status to sulfonamides; F31.9 Bipolar disorder, unspecified; F43.10 Post-traumatic stress disorder, unspecified
CPT/HCPCS: C1751; J1170; J2405

== ENCOUNTER 2016-05-10 17:00 | Inpatient (IN) | payer MEDICAID ==
[~2016-05-10] VITALS: Ht 162.6 cm; Wt 83.4 kg
--- NOTE | ~2016-05-10 | HP ---
PATIENT'S NAME: OSMAN ROBERT [facility] AGE: 40 Y [address] ROOM: [place] [address] LOCATION: [facility] ADMIT DATE: 05/10/2016 History & Physical DISCHARGE DATE: FAMILY PHYSICIAN: Hallie Keenan MD ATTENDING PHYSICIAN: SERGE GOLD V DATE OF SERVICE: CHIEF COMPLAINT: Abdominal distention. HISTORY OF PRESENT ILLNESS: The patient is a 40-year-old female with past medical history most significant for alcoholic cirrhosis with recurrent ascites requiring paracentesis. The patient was last seen here in the ER 3 days ago, where she had 5 L of ascites drained. She has developed worsening abdominal distention and discomfort and returned to her baseline today. She was seen by her bead inspector today and was sent to the hospital to rule out spontaneous bacterial peritonitis and to undergo another paracentesis. She denies any fevers, chills, but does admit to abdominal discomfort. No nausea, vomiting, diarrhea, or shortness of breath. REVIEW OF SYSTEMS: All systems have been reviewed and negative aside from pertinent positives mentioned above. PAST MEDICAL HISTORY: Significant for with alcoholic cirrhosis with recurrent ascites. Esophageal varices. At this point, the patient is not on a transplant list, though she has ceased using alcohol. She also has a past medical history of a "muscle disease," which was diagnosed in [place]. SOCIAL HISTORY: Negative for any ongoing toxic habits, though she was a cigarette smoker until January 2016. She also used to use meth. FAMILY HISTORY: Significant for heart disease in her father. CURRENT MEDICATIONS: We are still compiling a list, but she is on, 1. Inderal. PATIENT'S NAME: ROBERT BREWER [facility] AGE: 40 Y [address] ROOM: [place] [id number] LOCATION: [facility] ADMIT DATE: 05/10/2016 History & Physical DISCHARGE DATE: FAMILY PHYSICIAN: Hallie Keenan MD ATTENDING PHYSICIAN: SERGE GOLD V 2. Rifaximin. 3. Lasix. PHYSICAL EXAMINATION: VITAL SIGNS: At this point, her blood pressure is 110s/60s, heart rate is in the 80s, temperature is 97.5, saturating 98% on room air, and respirations 16. GENERAL: Appears as a chronically ill, middle-aged female, in no acute distress. NEUROLOGICAL: Exam is nonfocal. There is no asterixis. EYES: Pupils are equal and reactive to light. LYMPHATIC: No cervical lymphadenopathy. ENDOCRINE: No thyromegaly. LUNGS: Clear to auscultation. HEART: Rate is regular. No appreciable murmurs, gallops, or rubs. GI: Abdomen is severely distended with shifting dullness and diminished bowel sounds. VASCULAR: Bilateral pedal pulses and 2+ lower extremity edema. MUSCULOSKELETAL: Unremarkable. PSYCHIATRIC: Appropriate mood, cognition, and affect. STUDIES: No studies are available as of yet. ASSESSMENT AND PLAN: This is a 40-year-old female who will be admitted with, 1. Rapid reaccumulation of cirrhotic ascites. Per request of Dr. Daly, we will get an urgent paracentesis and obtain cell counts as well as cultures. Depending on cell count, we may decide to treat empirically though at this point, she does not appear to be septic/infected. 2. Volume overload. Per discussion with Dr. Daly, we will continue her on Lasix and hold off on Inderal to facilitate diuretic efficacy. 3. Symptomatic support. We will provide the patient with antiemetics and PPIs. 4. H/O varices: she does not appear to be acutely bleeding Additional management will depend on clinical course. Time dedicated to this patient's encounter is 25 minutes. MD LOPEZK/carlosl PATIENT'S NAME: ROBERT BREWER [facility] AGE: 40 Y [address] ROOM: [place] [address] LOCATION: [facility] ADMIT DATE: 05/10/2016 History & Physical DISCHARGE DATE: FAMILY PHYSICIAN: Hallie Keenan MD ATTENDING PHYSICIAN: SERGE GOLD V /[id number] D: [id number] 17 HISTORY & PHYSICAL
--- NOTE | ~2016-05-10 | DS ---
PATIENT'S NAME: ROBERT BREWER [facility] AGE: 40 Y [address] ROOM: [id number] [place], [place] [address] LOCATION: [facility] ADMIT DATE: 05/10/2016 Discharge Summary DISCHARGE DATE: 05/16/2016 FAMILY PHYSICIAN: Hallie Keenan MD ATTENDING PHYSICIAN: Marquise Mustafa V FINAL DIAGNOSES: 1. End-stage liver disease with decompensated cirrhosis. 2. Massive ascites. 3. Pancytopenia. 4. Depression. 5. Chronic pain. PROCEDURES: Paracentesis, ultrasound-guided paracentesis on 05/12/2016 and 05/16/2016. Please refer to the procedure report for further information. HOSPITAL COURSE: Briefly, the patient was admitted with recurring massive ascites. Please see details of admission and H and P by Dr. Mustafa. Initial paracentesis removed of 4000 mL. The patient was given morphine and fentanyl for pain. We did resume her home medications including MS Contin, this did help for pain. We did increase her Aldactone and Lasix for further management of the ascites. The patient tolerated this well. On the , the patient was seen by GI. Ultrasound of the abdomen with duplex scan was ordered. 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 The patient was started on Lovenox 80 mg subcu twice daily for therapeutic management. The patient continued to wax and wane throughout her stay. We did treat her constipation on the further aggressively with positive results. We did arrange for further paracentesis on the and it was felt that the patient could safely be discharged home after that time. This was accomplished without any further discharge. Plan is for the patient to follow up with [facility] for evaluation for transplant and further aggressive management of her symptoms. The patient was agreeable to this discharge plan and was discharged in stable condition. DIAGNOSTICS: Abdominal duplex scan shows partial thrombosis of the portal vein. LABORATORY STUDIES: On admission; sodium 143, potassium 3.9, chloride 106, bicarb 26, BUN 9, creatinine 0.8, total bilirubin was 1.9, alkaline phosphatase 278, AST 44, and ALT 27. Prior to discharge; sodium was 141, potassium 4.2, chloride 107, bicarb 25, glucose 156, BUN 11, and creatinine 0.8. On admission; white blood cell count was 2.3, hemoglobin was 9.9, hematocrit 32.3, and platelets 70. Upon discharge; white blood cell count was 2.0, hemoglobin 9.9, hematocrit 32.9, and platelet 67. Coags within normal limits throughout her stay. Culture of the paracentesis fluid showed no growth at 3 days. Blood cultures were negative at 5 days. PATIENT'S NAME: ROBERT BREWER [facility] AGE: 40 Y [address] ROOM: [place] [address] LOCATION: [facility] ADMIT DATE: 05/10/2016 Discharge Summary DISCHARGE DATE: 05/16/2016 FAMILY PHYSICIAN: Hallie Keenan MD ATTENDING PHYSICIAN: Marquise Mustafa V DISCHARGE INSTRUCTIONS: The patient is discharged home under the care of Dr. Keenan. Diet is as tolerated. Activity is as tolerated. She will follow up with gastrointestinal Office at [facility] in 1 week. DISCHARGE MEDICATIONS: 1. Amitriptyline 150 mg at bedtime. 2. Clonidine 0.1 mg twice daily. 3. Ferrous sulfate 325 mg daily. 4. Folic acid 1 mg daily. 5. Lasix 40 mg daily. 6. Thiamin 100 mg daily. 7. Topamax 25 mg daily. 8. Effexor 75 mg twice daily. 9. Lactulose 45 mg 4 times daily. 10. Lamictal 25 mg twice daily. 11. Levothyroxine 88 mcg daily. 12. Omeprazole 20 mg twice daily. 13. Potassium chloride 40 mEq daily. 14. Inderal 10 mg daily. 15. Rifaximin 550 mg twice daily. 16. Florastor 250 mg twice daily. 17. Spironolactone 100 mg daily. 18. MS Contin 15 mg every day p.r.n. 19. Albuterol. 20. ProAir 2 puffs every 6 hours as needed for shortness of breath. We do appreciate participating in this patient's care. Thank you very much for the ability to serve her while hospitalized at [facility]. Time spent coordinating details of discharge was 35 minutes of which was spent coordinating with consulting physicians and Care Management, completion of medication reconciliation, and education to the patient and family on the above-mentioned diagnoses. MIGUEL SHUKLA FOR MD ARELY HARLEY/modl /[id number] d: 05/17/16 0332 t: 05/18/16 1612, DISCHARGE SUMMARY
[2016-05-10 18:10] LABS: HEMATOCRIT 32.3 % (33.0-46.0); HEMOGLOBIN 9.9 g/dL (11.0-15.0); MCH 32.6 pg (27.0-34.0); MCHC 30.7 gm/dL (32.0-36.5); MCV 106.3 fl (83.0-98.0); MPV 11.2 fl (9.4-12.4); PLATELET COUNT 70 K/uL (150-450); RBC 3.04 M/uL (3.50-5.50); RDW-CV 22.5 % (11.9-14.6); WBC 2.3 K/uL (4.0-11.0)
[2016-05-10 18:27] LABS: ALBUMIN 2.7 gm/dL (3.5-5.0); ALK PHOS 278 IU/L (33-138); ALT 27 IU/L (12-78); ANION GAP 14.9 (10.0-19.0); AST 44 IU/L (10-40); BLOOD UREA NITROGEN 9 mg/dL (6-24); CALCIUM 7.9 mg/dL (8.5-10.5); CHLORIDE 106 mMol/L (96-110); CO2 26 mMol/L (22-32); CREATININE 0.8 mg/dL (0.5-1.1); ESTIMATED GFR (MDRD EQUATION) > 60; POTASSIUM 3.9 mMol/L (3.7-5.1); SODIUM 143 mMol/L (135-145); TOTAL BILIRUBIN 1.9 mg/dL (0.0-1.5); TOTAL PROTEIN 6.7 g/dL (6.0-8.4)
[2016-05-10 18:33] LABS: INR - (THERAPEUTIC) 1.1 (0.9-1.1); PROTIME 11.4 SECONDS (9.6-11.1); PTT 31 SECONDS (25-32)
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
[2016-05-10 18:41] LABS: ABSOLUTE NEUTROPHIL CT (ANC) 1.9 K/uL (1.8-7.8); BANDED NEUTROPHIL # 0.2 K/uL (0.0-0.1); BANDED NEUTROPHILS % 9 %; LYMPHOCYTE # 0.1 K/uL (0.8-4.0); LYMPHOCYTE % 6 %; MONOCYTE # 0.2 K/uL (0.0-1.0); SEGMENTED NEUTROPHIL # 1.7 K/uL (1.8-7.8); SEGMENTED NEUTROPHIL % 73 %
[2016-05-10 18:42] LABS: MAGNESIUM 2.2 mg/dL (1.3-2.6); PHOSPHORUS 3.2 mg/dL (2.5-4.9)
[2016-05-10] MEDS ORDERED: CATAPRES0.1 MG PO (21:25)
[2016-05-10] MEDS ORDERED: DULCOLAX5 MG PO (21:27)
[2016-05-10] MEDS ORDERED: KLONOPIN0.5 MG PO (21:27)
[2016-05-10] MEDS ORDERED: LAMICTAL25 MG PO (21:28)
[2016-05-10] MEDS ORDERED: LEVOTHROID (SY25 MCG PO (21:29)
[2016-05-10 22:16] LABS: PERITONEAL FLUID TURBIDITY 2+ (CLEAR)
[2016-05-10 22:56] LABS: % PERITONEAL FLUID EOS 2 % (0-0); % PERITONEAL FLUID MONO/MACRO 20 % (0-0); % PERITONEAL FLUID NEUT 11 % (0-25)
--- NOTE | 2016-05-11 05:06 | NUR ---
Significant Event: Patient is alert and oriented x 3. VSS on room air. SBPs in the 90s-100s. Up with 1 assist. Abdomen very distended. On 1.5L fluid restriction. Low sodium diet. Left forearm IV, saline locked. Received Fentanyl for pain last at 2327 and morphine last at 0207. Paracentesis this shift, 5300 mls taken off. Patient is cooperative with cares. Follow up:
--- NOTE | 2016-05-11 15:51 | NUR ---
Significant Event: Patient is alert and oriented x3. VSS and on RA. Up with SBA. Regular diet- eats fair. Fluid restriction of 1500ml. Patient is aware and follows well. New IV started in the R)FA, I need to remove the old IV in the L)FA yet. PT/OT consult. Receiving lactulose QID. Dressing removed from the abdomen from the paracentesis yesterday. Zofran given for nausea x1 around noon- relief noted. IV morphine given x2, last at 1158. Relief noted. Then received an order for oral morphine TID PRN, so at 1430 MS was given and relief was noted. Plans on showering later when her family comes. Voiding okay. Stated she had one BM had already flushed, told her to please save it so the nurse could observe. She states they are loose. Cooperative with cares.
--- NOTE | 2016-05-12 04:19 | NUR ---
Significant Event: Patient is alert and oriented x 3. VSS on room air. Up with stand by assist to bathroom. Voiding well. BM x 2 this shift. Dressing to right side of abdomen is c/d/i. 1500 ml fluid restriction. Right wrist IV, saline locked. Received MS Contin for pain last at 2038 and Fentanyl last at 13. Standing weight. Patient is pleasant and cooperative with cares. Follow up: Paracentesis today.
--- NOTE | 2016-05-12 11:16 | NUR ---
I have examined the student charting and find it acceptable. Mookie HIGGINS
--- NOTE | 2016-05-12 11:20 | NUR ---
Introduced self/role to patient. She is currently living with her mom. Would like a listing of low-income housing options in [place] - gave to her. Needs to contact [facility] for transplant application because she left it at her old apartment in [place] - called them and gave them her new phone number to contact, will mail new application. Needs Medicaid's number to get a new insurance card - given to her. She needs to start drug treatment at [facility] which she doesn't need help with except a letter of recommendation stating she is off her pain medications - I suggested she talked to her primary doctor, Dr. Hallie Keenan about this. Patient stated she has an appointment Monday. Then she asked about how to complete a Will, has a POA already. I stated an dairy farmworker would have to do that. I called [facility] [employer] and inquired if they knew of any board operator who would accept Medicaid. When they call me back, patient gave me permission to give them her name and make a referral for their services. Message was left with Juani. Patients home number is #[phone]. She has children who are living with her and her mom - 12,16,18 and 22 years old. Added my name to her marker board, will continue to follow.
--- NOTE | 2016-05-12 15:39 | NUR ---
Significant Event: Patient is alert and oriented x3. VSS and on RA. Had paracentesis today- took off 4 liters. FR 1500 ml. Abdominal/Renal duplex scan completed today as well, the report read that it showed partial thrombosis of the portal vein. Morphine IR given x2, last at 1321. Relief noted. Up with SBA. IV to the R)Wrist and then they started in a midline in the L)upper arm. Sign was placed above the bed. Denies nausea. Cooperative with cares.
--- NOTE | 2016-05-13 03:52 | NUR ---
NEURO: A&O. CARDIO: Lovenox. RESP: Mid to upper 90's on RA. GI/: Lactulose. No BM this shift. 1500ml fluid restriction. SKIN: Dressing to right abdomen from paracentesis yesterday. . IV: Left upper arm midline. Right FA. SL. ACTIVITY: SBA. PAIN: Morphine PO TID. PLAN: Possibly to [place] for shunt placement.
--- NOTE | 2016-05-13 11:46 | NUR ---
I have examined the student charting and find it acceptable. RONALDO Damico
--- NOTE | 2016-05-13 14:54 | NUR ---
Gave patient the phone number for Juani at [facility] #[phone].
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
--- NOTE | 2016-05-14 04:45 | NUR ---
NEURO: A&O x 3. CARDIO: Lovenox. RESP: Upper 90's on RA. GI/: Lactulose. No nausea. No BM this shift. 1500 ml. fluid restriction. SKIN: Abdomen distended. Dressing CDI from previous paracentesis. IV: Left upper arm midline SL. Right FA SL. ACTIVITY: Showered last night. Up ad naheed. PAIN: Morphine PO PRN TID. PLAN: Possibly to [place] for shunt placement.
[2016-05-14 06:49] LABS: HEMATOCRIT 30.3 % (33.0-46.0); HEMOGLOBIN 9.4 g/dL (11.0-15.0); MCH 33.1 pg (27.0-34.0); MCV 106.7 fl (83.0-98.0); MPV 12.1 fl (9.4-12.4); RBC 2.84 M/uL (3.50-5.50); RDW-CV 22.1 % (11.9-14.6)
[2016-05-14 06:50] LABS: PLATELET COUNT 58 K/uL (150-450); WBC 1.7 K/uL (4.0-11.0)
[2016-05-14 06:56] LABS: INR - (THERAPEUTIC) 1.1 (0.9-1.1); PROTIME 11.8 SECONDS (9.6-11.1)
[2016-05-14 07:10] LABS: ALBUMIN 2.4 gm/dL (3.5-5.0); ALK PHOS 277 IU/L (33-138); ALT 22 IU/L (12-78); AST 40 IU/L (10-40); BLOOD UREA NITROGEN 11 mg/dL (6-24); CALCIUM 7.9 mg/dL (8.5-10.5); CHLORIDE 106 mMol/L (96-110); CO2 28 mMol/L (22-32); CREATININE 0.7 mg/dL (0.5-1.1); ESTIMATED GFR (MDRD EQUATION) > 60; SODIUM 142 mMol/L (135-145); TOTAL BILIRUBIN 1.9 mg/dL (0.0-1.5); TOTAL PROTEIN 5.8 g/dL (6.0-8.4)
[2016-05-14 07:27] LABS: ABSOLUTE NEUTROPHIL CT (ANC) 0.9 K/uL (1.8-7.8); BANDED NEUTROPHILS % 1 %; LYMPHOCYTE # 0.5 K/uL (0.8-4.0); LYMPHOCYTE % 31 %; MONOCYTE # 0.2 K/uL (0.0-1.0); SEGMENTED NEUTROPHIL # 0.9 K/uL (1.8-7.8); SEGMENTED NEUTROPHIL % 52 %
--- NOTE | 2016-05-14 09:29 | NUR ---
PT SCREENED D/T LOS. EST NEEDS: [id number] KCALS, 54-65 GM PROTEIN, FLUIDS RESTRICTED TO 1500 ML. INTAKE ADEQUATE. NO NUTRITION RELATED DX IDENTIFIED.
--- NOTE | 2016-05-14 16:12 | NUR ---
A&O. VSS. C/O PAIN TO ABD PO MORPHINE X1. SBA. AFEBRILE. RA. TAPPED SEVERAL TIMES DISTENDED ACITIES ABD. NO BM TODAY. VD X3. 1500ML FLUID RESTRICTION. L MIDLINE. LS WHEEZY. R FA SL. PLAN IS [place] FOR SHUNT?
--- NOTE | 2016-05-15 05:14 | NUR ---
Significant Event: Patient alert and oriented X4. Up with SBA. Does well. MIdline to L) arm, and saline lock to R) wrist. Zofran given X1 around 2114. Relief noted. Several BMs this shift, one was loose pateint states, others were formed. PO morphine given at 0230. Vitals stable and on room air. Plan is possible [place] for shunt? Follow up: Monitor acites
[2016-05-15 14:41] LABS: HEMATOCRIT 32.7 % (33.0-46.0); MCH 33.4 pg (27.0-34.0); MCHC 30.6 gm/dL (32.0-36.5); MCV 109.4 fl (83.0-98.0); PLATELET COUNT 66 K/uL (150-450); RBC 2.99 M/uL (3.50-5.50); RDW-CV 21.8 % (11.9-14.6); WBC 2.2 K/uL (4.0-11.0)
[2016-05-15 14:57] LABS: ALBUMIN 2.5 gm/dL (3.5-5.0); ANION GAP 13.2 (10.0-19.0); BLOOD UREA NITROGEN 11 mg/dL (6-24); CALCIUM 7.9 mg/dL (8.5-10.5); CHLORIDE 107 mMol/L (96-110); CO2 25 mMol/L (22-32); CREATININE 0.8 mg/dL (0.5-1.1); ESTIMATED GFR (MDRD EQUATION) > 60; PHOSPHORUS 3.4 mg/dL (2.5-4.9); POTASSIUM 4.2 mMol/L (3.7-5.1); SODIUM 141 mMol/L (135-145)
[2016-05-15 15:09] LABS: ABSOLUTE NEUTROPHIL CT (ANC) 1.2 K/uL (1.8-7.8); BANDED NEUTROPHIL # 0.2 K/uL (0.0-0.1); BANDED NEUTROPHILS % 7 %; LYMPHOCYTE # 0.6 K/uL (0.8-4.0); LYMPHOCYTE % 25 %; MONOCYTE # 0.2 K/uL (0.0-1.0); SEGMENTED NEUTROPHIL # 1.1 K/uL (1.8-7.8); SEGMENTED NEUTROPHIL % 49 %
--- NOTE | 2016-05-15 15:44 | NUR ---
Significant Event: Pt c/o intermittent lower abd pain, MS IV given x1 this am and MS PO given around 1330. Up with standby assist. Abd distended. Labs done this afternoon, to hold Lovenox for possible paracenthesis in the future. Continues on fluid restriction. Has had 3 bm's this shift, held Miralax, is on lactoluse. Follow up:
--- NOTE | 2016-05-16 04:23 | NUR ---
Significant Event: Patient alert and oriented X4. Up with stand by assist. Hypotensive at times. In SBP in mid 90s. Daily weight. Possible paracentesis today, needs to be seen by GI. Midline to L) upper arm, good blood return. Held lovenox last night. 1500ml fluid restrict. Vitals stable. Room air. PO MS contin given at 2052, and IV fent given at 0226 for abominal pain. Follow up: Monitor distention
[2016-05-16 10:12] LABS: HEMATOCRIT 32.9 % (33.0-46.0); HEMOGLOBIN 9.9 g/dL (11.0-15.0); MCH 33.2 pg (27.0-34.0); MCHC 30.1 gm/dL (32.0-36.5); MCV 110.4 fl (83.0-98.0); MPV 11.8 fl (9.4-12.4); PLATELET COUNT 67 K/uL (150-450); RBC 2.98 M/uL (3.50-5.50); RDW-CV 21.9 % (11.9-14.6)
[2016-05-16 10:31] LABS: INR - (THERAPEUTIC) 1.1 (0.9-1.1); PROTIME 11.2 SECONDS (9.6-11.1)
[2016-05-16 10:49] LABS: ABSOLUTE NEUTROPHIL CT (ANC) 1.4 K/uL (1.8-7.8); BANDED NEUTROPHIL # 0.1 K/uL (0.0-0.1); BANDED NEUTROPHILS % 4 %; LYMPHOCYTE # 0.4 K/uL (0.8-4.0); LYMPHOCYTE % 20 %; MONOCYTE # 0.1 K/uL (0.0-1.0); SEGMENTED NEUTROPHIL # 1.3 K/uL (1.8-7.8); SEGMENTED NEUTROPHIL % 64 %
[2016-05-16] MEDS ORDERED: FEOSOL325 MG PO (15:47)
[2016-05-16] MEDS ORDERED: CATAPRES0.1 MG PO (15:47)
--- NOTE | 2016-05-16 16:19 | NUR ---
D: Orders received for the patient to be discharged to home today. I: Dismissal instructions were prepared and reviewed with the patient and family virtually. The following information was discussed including [employer] teaching sheets: Understanding cirrhosis, Discharge instructions for cirrhosis of the liver, paracentesis, Discharge instructions for paracentesis, Clonidine, Ferrous Sulfate and Preventing DVT. Reviewed follow up appointment with ultrasoud and new prescriptions. R: The patient verbalized understanding of the dismissal education at the time of teaching with no further questions. P: The above information was shared with the primary nurse and the charge nurse that the patient dismissal education was completed. The patient is ready for discharge to the front door via wheel chair by nursing staff.
== END 2016-05-16 16:50 | disposition disaster alternative care site (69) | DRG 432 ==
LOC: GMSU 17:18
PROVIDERS: Family Medicine; Nurse Practitioner Family; Physician Assistant; ADMIT Internal Medicine
PROC: 0W9G3ZX Drainage of Peritoneal Cavity, Percutaneous Approach, Diagnostic (ICD-10-PCS; 2016-05-10)
PROC: 0W9G3ZZ Drainage of Peritoneal Cavity, Percutaneous Approach (ICD-10-PCS; principal; 2016-05-12)
PROC: 0W9G3ZZ Drainage of Peritoneal Cavity, Percutaneous Approach (ICD-10-PCS; 2016-05-16)
DX: K70.31 Alcoholic cirrhosis of liver with ascites (principal); I81 Portal vein thrombosis; D61.818 Other pancytopenia; K72.90 Hepatic failure, unspecified without coma; Z87.891 Personal history of nicotine dependence; F32.9 Major depressive disorder, single episode, unspecified; R26.89 Other abnormalities of gait and mobility; K59.00 Constipation, unspecified; G89.29 Other chronic pain
CPT/HCPCS: A9270; C1751; C9113; J1170; J1650; J1940; J2270; J2405; J3010; P9047

== ENCOUNTER 2016-05-19 22:40 | Emergency (ER) | payer MEDICAID ==
--- NOTE | ~2016-05-19 | ER ---
PATIENT'S NAME: [facility] AGE: 40 Y [address] ROOM: [place], [place] [address] LOCATION: ED ADMIT DATE: 05/19/2016 ER/Outpatient Report DISCHARGE DATE: 05/19/2016 FAMILY PHYSICIAN: Hallie Keenan MD ATTENDING PHYSICIAN: Carlin Fajardo Time of Arrival: 2242 hours. Time of Exam: 2242 hours. CHIEF COMPLAINT: Abdominal pain. HISTORY OF PRESENT ILLNESS: The patient has a history of ascites related to cirrhosis of the liver with end-stage liver disease. She states she did see Dr. Keenan today, is scheduled to have a paracentesis tap done tomorrow at 1230 hours. States she is having quite a bit of pain. She feels confused and short of breath. When questioned, her symptoms are no different than they were today at the doctor's office. She just cannot get comfortable tonight and rest because of the pain that she is having. ALLERGIES: SULFA AND PENICILLIN. CURRENT MEDICATIONS: On her chart and reviewed by me. She states she did not take anything for pain other than the Tylenol because she does not have anything at home stronger. Her discharge instructions states she is supposed to have MS Contin, but she states she does not have any. PAST MEDICAL HISTORY: End-stage liver disease with decompensation, cirrhosis, ascites, and esophageal varices. PAST SURGERIES: Left leg surgery and multiple paracenteses, last being on 05/16/2016. SOCIAL HISTORY: [facility] her father whom she lives with. She lives with her mom and dad. She denies use of tobacco, drugs, or alcohol. REVIEW OF SYSTEMS: Review of systems are negative other than those mentioned in the HPI. PHYSICAL EXAMINATION: PATIENT'S NAME: [facility] AGE: 40 Y [address] ROOM: [place], [place] [address] LOCATION: ED ADMIT DATE: 05/19/2016 ER/Outpatient Report DISCHARGE DATE: 05/19/2016 FAMILY PHYSICIAN: Hallie Keenan MD ATTENDING PHYSICIAN: Carlin Fajardo VITAL SIGNS: She weighed 86.9 kg. Blood pressure is 115/63, pulse of 87, respirations 18, temperature of 99.3 tympanic, and O2 saturation is 98% on room air. GENERAL: She is awake, alert, answers questions appropriately, oriented x4. SKIN: Pale, icteric. LUNGS: Respirations are even and nonlabored. Lung sounds are clear throughout. HEART: Regular rate and rhythm. ABDOMEN: Round, distended, is tender throughout. She has positive bowel sounds. NEURO: She walked in with a steady even gait. Moves all extremities strongly and equally. LABORATORY DATA: Lab work was drawn. CBC is with a white count of 3.5, ANC was 2.6, platelets were 60. Chem panel: Sodium is 137, potassium 3.7, chloride 104. BUN was 12 with creatinine of 0.7. Total bilirubin is 1.4, alkaline phosphatase is 313, AST is 55, and ALT is 31. Ammonia level is 113. Lactate was 2.3. EMERGENCY DEPARTMENT COURSE: The patient was consulted with Dr. Fajardo. She was given Percocet 5/325 x1 tab p.o. She continued to complain of having generalized discomfort. I did discuss with her that the paracentesis tomorrow will probably give her the most relief. She does agree that the paracentesis does usually make abdominal pain feel better. IMPRESSION: Ascites due to end-stage liver disease. PLAN: Home, rest. Return tomorrow at 1230 hours as scheduled to have the paracentesis done. Contact Dr. Keenan for continuation of care. She verbalized understanding. AMALIA CLIFTON APRN FOR MD DAVID GOMES/kwesi /[id number] d: 05/20/16 0207 t: 05/24/16 0813, OUTPATIENT REPORT
[~2016-05-19 22:40] MED LIST changes: -CERTAVITE-ANTI1 EACH PO; -LEVAQUIN 750 M750 MG PO; -LOVENOX 8080 MG/0.8 SUB-Q; -PROTONIX40 MG PO; -THIAMINE HCL100 MG PO; -ZOFRAN4 MG PO
[2016-05-19 23:07] LABS: BASOPHIL % 0.6 %; EOSINOPHIL # 0.1 K/uL (0.0-0.5); EOSINOPHIL % 2.6 %; HEMATOCRIT 34.5 % (33.0-46.0); HEMOGLOBIN 11.1 g/dL (11.0-15.0); LYMPHOCYTE # 0.5 K/uL (0.8-4.0); LYMPHOCYTE % 14.5 %; MCHC 32.2 gm/dL (32.0-36.5); MCV 105.8 fl (83.0-98.0); MONOCYTE # 0.3 K/uL (0.0-1.0); MPV 11.9 fl (9.4-12.4); NEUTROPHIL # (ANC) 2.6 K/uL (1.8-7.8); NEUTROPHIL % 74.3 %; NRBC % 0 /100WBC (0-0.00); PLATELET COUNT 60 K/uL (150-450); RBC 3.26 M/uL (3.50-5.50); RDW-CV 21.1 % (11.9-14.6); WBC 3.5 K/uL (4.0-11.0)
[2016-05-19 23:23] LABS: ALBUMIN 2.5 gm/dL (3.5-5.0); ALK PHOS 313 IU/L (33-138); ALT 31 IU/L (12-78); ANION GAP 12.7 (10.0-19.0); AST 55 IU/L (10-40); BLOOD UREA NITROGEN 12 mg/dL (6-24); CALCIUM 7.9 mg/dL (8.5-10.5); CHLORIDE 104 mMol/L (96-110); CO2 24 mMol/L (22-32); CREATININE 0.7 mg/dL (0.5-1.1); ESTIMATED GFR (MDRD EQUATION) > 60; POTASSIUM 3.7 mMol/L (3.7-5.1); SODIUM 137 mMol/L (135-145); TOTAL PROTEIN 6.5 g/dL (6.0-8.4)
[2016-05-19 23:24] LABS: TOTAL BILIRUBIN 1.4 mg/dL (0.0-1.5)
== END 2016-05-19 23:45 | disposition disaster alternative care site (69) ==
LOC: GMED 22:40
PROVIDERS: Nurse Practitioner Family
DX: K72.90 Hepatic failure, unspecified without coma (principal); R18.8 Other ascites; Z88.2 Allergy status to sulfonamides; Z88.0 Allergy status to penicillin; Z98.890 Other specified postprocedural states

== ENCOUNTER → 2016-05-19 | Outpatient (CLI) | payer MEDICAID ==
[~2016-05-19] MED LIST changes: +CATAPRES0.1 MG PO; +CERTAVITE-ANTI1 EACH PO; +DULCOLAX5 MG PO; +KLONOPIN0.5 MG PO; +LAMICTAL25 MG PO; +LEVAQUIN 750 M750 MG PO; +LEVOTHROID (SY25 MCG PO; +LOVENOX 8080 MG/0.8 SUB-Q; +PROTONIX40 MG PO; +THIAMINE HCL100 MG PO; +ZOFRAN4 MG PO
[2016-05-19 16:13] LABS: INR - (THERAPEUTIC) 1.1 (0.9-1.1); PROTIME 11.4 SECONDS (9.6-11.1)
== END | disposition disaster alternative care site (69) ==
LOC: LGSMG 16:02
PROVIDERS: Internal Medicine
DX: R18.8 Other ascites (principal)

== ENCOUNTER 2016-05-22 14:29 | Emergency (ER) | payer MEDICAID ==
--- NOTE | ~2016-05-22 | ER ---
PATIENT'S NAME: OSMAN [facility] AGE: 40 Y [address] ROOM: [place] [address] LOCATION: [facility] ADMIT DATE: 05/22/2016 ER/Outpatient Report DISCHARGE DATE: 05/22/2016 FAMILY PHYSICIAN: Hallie Keenan MD ATTENDING PHYSICIAN: Jeny Glynn Time of Arrival: 1429 hours. Time Seen: 1529 hours. IDENTIFICATION: A 40-year-old female. CHIEF COMPLAINT: Distended abdomen. HISTORY OF PRESENT ILLNESS: The patient is a 40-year-old female who is released from the hospital on May 16 for end-stage liver disease with decompensated cirrhosis, massive ascites, pancytopenia, depression, and chronic pain. She came back into the emergency room on May 19 and was scheduled for therapeutic paracentesis on the . She did not go to that because she was feeling a little bit better. Now over the weekend, she is having increasing distension, she also did not fill the Lovenox that was recommended on discharge on may 10. When she called to talk to Dr. Keenan, Dr. Keenan was upset with the fact she was not restarted on her Lovenox as it was not on her discharge medications and recommended that she get that filled. 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 She has increasing pressure, shortness of breath, and ascites. No fever or chills. No nausea or vomiting. Last oral intake was 1 hour ago. Last bowel movement was today. No blood in her stools. No dark, tarry, or black stools. PAST MEDICAL HISTORY: ALLERGIES: TO SULFA, PENICILLIN, AND DIAZEPAM. CURRENT MEDICATIONS: 1. Amitriptyline 150 mg at h.s. 2. Clonidine 0.1 mg b.i.d. 3. Ferrous sulfate 325 mg daily. 4. Folic acid 1 mg daily. 5. Lasix 40 mg daily. 6. Thiamine 100 mg daily. PATIENT'S NAME: OSMAN [facility] AGE: 40 Y [address] ROOM: [place] [address] LOCATION: [facility] ADMIT DATE: 05/22/2016 ER/Outpatient Report DISCHARGE DATE: 05/22/2016 FAMILY PHYSICIAN: Hallie Keenan MD ATTENDING PHYSICIAN: Jeny Glynn 7. Topamax 25 mg daily. 8. Effexor 75 mg b.i.d. 9. Lactulose 45 mg 4 times a day. 10. Lamictal 25 mg b.i.d. 11. Levothyroxine 88 mcg daily. 12. Omeprazole 20 mg b.i.d. 13. KCl 40 mEq daily. 14. Inderal 10 mg daily. 15. Rifaximin 550 mg b.i.d. 16. Florastor 250 mg b.i.d. 17. Spironolactone 100 mg daily. 18. MS Contin 15 mg p.r.n. 19. Albuterol ProAir 2 puffs p.r.n. MEDICAL PROBLEMS: 1. Alcoholic cirrhosis. 2. Recurrent ascites. 3. Esophageal varices. 4. Anxiety. 5. Bipolar. 6. Insomnia. 7. PTSD. 8. Arteritis. 9. Chronic back pain. 10. Herniated disk. 11. Narcotic abuse. PRIOR SURGERIES: Esophageal varices banded. SOCIAL HISTORY: The patient was living in [place], moved back to live with her parents at the end of March here in [place]. Tobacco use, stopped in January of 2016. Alcohol use: The patient reports last drink in January. History of narcotic pain medication use: Last pain med use was 3 years ago. FAMILY HISTORY: Father with heart disease. REVIEW OF SYSTEMS: All systems reviewed and negative other than what is noted in the HPI. PHYSICAL EXAMINATION: VITAL SIGNS: Weight 91.2 kg, up from 88.7 kg on May 07 and 86.9 kg on May 19; pulse 80; respirations 20; temperature 97.6; blood pressure PATIENT'S NAME: ROBERT BREWER [facility] AGE: 40 Y [address] ROOM: [place], [place] [address] LOCATION: [facility] ADMIT DATE: 05/22/2016 ER/Outpatient Report DISCHARGE DATE: 05/22/2016 FAMILY PHYSICIAN: Hallie Keenan MD ATTENDING PHYSICIAN: Jeny Glynn 121/78; and saturations 100% on room air. GENERAL: A 40-year-old female who is with labored breathing and a little bit tachypneic. HEENT: Head: Normocephalic, atraumatic. Ears: TMs translucent, both ears. Eyes: Pupils equal and reactive to light and accommodation. Extraocular movements intact. Mouth, no lesions. Pharynx benign. NECK: Supple. No lymphadenopathy. LUNGS: Clear to auscultation. Breath sounds are equal. HEART: Regular rate and rhythm. ABDOMEN: Soft and nondistended. No hepatosplenomegaly. No palpable masses. Nontender. SKIN: Pale, warm, and dry. No lesions or rashes noted. The patient has had a little bit of jaundice. NEURO: The patient is alert and oriented. Cranial nerves 2 through 12 grossly intact. ABDOMEN: Distended. Positive ascites. DIAGNOSTIC DATA: Sodium 142, potassium 3.6, chloride 110, CO2 21, BUN 12, creatinine 0.7, blood sugar 65. Alkaline phosphatase 384, AST 65, and ALT 40. Ammonia level 47. Hemoglobin 11.2; hematocrit 36.1; platelets 69, which are stable; white blood cell count 2.8, which is also stable. White blood cell differential is normal. Ultrasound of the abdomen: Large volume ascites, cirrhotic morphology of the liver with splenomegaly, cholelithiasis with no evidence of cholecystitis. Two-view chest x-ray, left pleural effusion, increasing in size since the prior study. IMPRESSION AND PLAN: 1. Ascites. 2. Pleural effusion. PLAN: The patient is afebrile, not hypoxic. White count is unchanged. I did discuss with Dr. Mustafa who also evaluated the patient and felt that she could be discharged home with followup appointment for paracentesis per Radiology tomorrow. Hold Lovenox tonight and in the morning. Paracentesis at 10:00 a.m. tomorrow, May 23. Follow up radiologist at 10 a.[address]. Follow up with Dr. Keenan in 1-2 days. The patient understands and agrees and has no further questions at this time. PATIENT'S NAME: ROBERT BREWER [facility] AGE: 40 Y [address] ROOM: [place], [place] [address] LOCATION: [facility] ADMIT DATE: 05/22/2016 ER/Outpatient Report DISCHARGE DATE: 05/22/2016 FAMILY PHYSICIAN: Hallie Keenan MD ATTENDING PHYSICIAN: Jeny Glynn MD CAR/modl /[id number] d: 05/23/161940 t: 05/24/16 1427, OUTPATIENT REPORT
[2016-05-22 16:01] LABS: HEMATOCRIT 36.1 % (33.0-46.0); HEMOGLOBIN 11.2 g/dL (11.0-15.0); MCH 33.6 pg (27.0-34.0); MCV 108.4 fl (83.0-98.0); MPV 11.7 fl (9.4-12.4); PLATELET COUNT 69 K/uL (150-450); RBC 3.33 M/uL (3.50-5.50); RDW-CV 19.7 % (11.9-14.6); WBC 2.8 K/uL (4.0-11.0)
[2016-05-22 16:09] LABS: INR - (THERAPEUTIC) 1.1 (0.9-1.1); PROTIME 11.2 SECONDS (9.6-11.1); PTT 30 SECONDS (25-32)
[2016-05-22 16:25] LABS: ALBUMIN 2.4 gm/dL (3.5-5.0); ALK PHOS 384 IU/L (33-138); ALT 40 IU/L (12-78); ANION GAP 14.6 (10.0-19.0); AST 65 IU/L (10-40); BLOOD UREA NITROGEN 12 mg/dL (6-24); CALCIUM 7.7 mg/dL (8.5-10.5); CHLORIDE 110 mMol/L (96-110); CO2 21 mMol/L (22-32); CREATININE 0.7 mg/dL (0.5-1.1); ESTIMATED GFR (MDRD EQUATION) > 60; POTASSIUM 3.6 mMol/L (3.7-5.1); SODIUM 142 mMol/L (135-145); TOTAL BILIRUBIN 1.2 mg/dL (0.0-1.5); TOTAL PROTEIN 6.7 g/dL (6.0-8.4)
[2016-05-22 16:29] LABS: BANDED NEUTROPHIL # 0.1 K/uL (0.0-0.1); BANDED NEUTROPHILS % 3 %; LYMPHOCYTE # 0.3 K/uL (0.8-4.0); LYMPHOCYTE % 11 %; MONOCYTE # 0.3 K/uL (0.0-1.0); SEGMENTED NEUTROPHIL # 1.9 K/uL (1.8-7.8); SEGMENTED NEUTROPHIL % 68 %
== END 2016-05-22 18:02 | disposition disaster alternative care site (69) ==
LOC: GMED 14:29
PROVIDERS: Family Medicine
DX: R18.8 Other ascites (principal); J90 Pleural effusion, not elsewhere classified; F31.9 Bipolar disorder, unspecified; K70.30 Alcoholic cirrhosis of liver without ascites; M19.90 Unspecified osteoarthritis, unspecified site; I85.00 Esophageal varices without bleeding; Z88.0 Allergy status to penicillin; Z88.8 Allergy status to other drugs, medicaments and biological substances; Z88.2 Allergy status to sulfonamides; Z79.899 Other long term (current) drug therapy

== ENCOUNTER → 2016-05-23 | Outpatient (CLI) | payer MEDICAID ==
[~2016-05-23] MED LIST changes: +CERTAVITE-ANTI1 EACH PO; +LEVAQUIN 750 M750 MG PO; +LOVENOX 8080 MG/0.8 SUB-Q; +PROTONIX40 MG PO; +THIAMINE HCL100 MG PO; +ZOFRAN4 MG PO
== END | disposition disaster alternative care site (69) ==
LOC: GOPD 05-19 16:00
PROC: 0W9G3ZZ Drainage of Peritoneal Cavity, Percutaneous Approach (ICD-10-PCS; principal; 2016-05-23)
DX: R18.8 Other ascites (principal)

== ENCOUNTER 2016-05-28 17:16 | Emergency (ER) | payer MEDICAID ==
--- NOTE | ~2016-05-28 | ER ---
PATIENT'S NAME: ROBERT BREWER [facility] AGE: 40 Y [address] ROOM: [place] [address] LOCATION: [facility] ADMIT DATE: 05/28/2016 ER/Outpatient Report DISCHARGE DATE: FAMILY PHYSICIAN: Hallie Keenan MD ATTENDING PHYSICIAN: Titi Amor HISTORY OF PRESENT ILLNESS: This patient is a 40-year-old female, who presented to the emergency room with some shortness of breath, difficulty breathing along with generalized abdominal pain. The patient has a history of alcoholic liver cirrhosis with ascites. The patient did have a tap with drainage of ascites this past Monday. They took 8 L off. She has had a 15-pound weight gain since that time. She has central kind of generalized abdominal pain. No fever. No white count. LABORATORY DATA AND X-RAYS: Chest x-ray showed left pleural effusion, little bit larger than previous x- ray. The patient's white count was 2700, 56 segs, 1 band, 31 lymphs, 9 monos, 3 eos hemoglobin was 11.4 with hematocrit 36.8, platelet count was 92,000. PTT was 36, pro-time was 11.2 with an INR 1.1. CMS was normal except for low calcium 7.8, elevated alkaline phosphatase 419, elevated AST of 62. Point-of- care cardiac enzymes were normal. ProBNP was 96. Procalcitonin was 0.06. Lactate was 1.2. Serum ammonia level was normal at 30. EMERGENCY DEPARTMENT COURSE: I did discuss the patient with Dr. Shipley, who wanted to see if an abdominal paracentesis could be done. I talked to Dr. Herrera. He wanted to do that tomorrow morning at 10 o'clock. IMPRESSION: Generalized abdominal pain with ascites, fluid secondary to alcoholic hepatic cirrhosis. The patient has had a 15-pound weight gain in the past 5 days along with abdominal pain. Her INR is normal at 1.2. White count is 2700 with a normal differential. Serum ammonia was negative. PLAN: The patient was given Cipro 400 mg IV here in the emergency department, 100 mL of 25% albumin was given IV here in the emergency department, 40 mg of Lasix was given IV here in the emergency department. The patient dismissed home. Observation. Activity as tolerated. Cipro 500 mg twice a day for 1 week. [place] 5/325 as needed for pain, #10. Return for outpatient abdominal paracentesis at 10 o'clock tomorrow morning. Discussion ensued with the patient concerning my findings and recommendations, she understands. PATIENT'S NAME: ROBERT BREWER [facility] AGE: 40 Y [address] ROOM: [place] [address] LOCATION: [facility] ADMIT DATE: 05/28/2016 ER/Outpatient Report DISCHARGE DATE: FAMILY PHYSICIAN: Hallie Keenan MD ATTENDING PHYSICIAN: Titi Amor MD POOJA ROSARIO/modl /[id number] d: 05/28/162199 t: 05/29/16 1824, OUTPATIENT REPORT
--- NOTE | ~2016-05-28 | ER ---
PATIENT'S NAME: OSMAN [facility] AGE: 40 Y [address] ROOM: [place] [address] LOCATION: ED ADMIT DATE: 05/28/2016 ER/Outpatient Report DISCHARGE DATE: 05/28/2016 FAMILY PHYSICIAN: Hallie Keenan MD ATTENDING PHYSICIAN: Titi Amor Time of arrival: 1716 hours. Time of evaluation: 1725 hours. CHIEF COMPLAINT: Abdominal pain. HISTORY OF PRESENT ILLNESS: The patient is a 40-year-old female, who presents to the emergency department today with chief complaint of abdominal pain. She reports this started about 24 hours prior to arrival. The patient has end-stage liver disease with cirrhosis, did require a paracentesis on Monday and took a large amount of fluid. Her requirement for paracentesis has been increasing lately. She is having some shortness of breath. She is complaining of abdominal crampy type pain. It is 10/10 in severity. She denies any fevers or chills. She does have some nausea with one episode of vomiting yesterday. She denies any diarrhea or constipation. She does have loose stool due to her lactulose. She denies any chest pain. She does report that she has a blood clot in her portal vein and she has been taking Lovenox for this. PAST MEDICAL HISTORY: 1. Alcoholic cirrhosis. 2. Recurrence ascites. 3. Esophageal varices. 4. Anxiety. 5. Bipolar. 6. Insomnia. 7. PTSD. 8. Arteritis. 9. Chronic back pain. 10. Herniated disk. 11. Narcotic abuse. PAST SURGICAL HISTORY: Esophageal banding. SOCIAL HISTORY: Stopped tobacco use in January 2016, also reports the last drink was in January. Does have a history of narcotic pain medicine, last pain medicine use was 3 years ago. PATIENT'S NAME: [facility] AGE: 40 Y [address] ROOM: [place] [address] LOCATION: ED ADMIT DATE: 05/28/2016 ER/Outpatient Report DISCHARGE DATE: 05/28/2016 FAMILY PHYSICIAN: Hallie Keenan MD ATTENDING PHYSICIAN: Titi Amor FAMILY HISTORY: Father with heart disease. ALLERGIES: TO SULFA AND PENICILLIN. MEDICATIONS: Please see list. PRIMARY CARE DOCTOR: Hallie Keenan MD [employer] OPERATIONS MANAGER: . REVIEW OF SYSTEMS: All systems are reviewed by myself and are negative with the exception of those discussed in HPI and past medical history. PHYSICAL EXAMINATION: VITAL SIGNS: Weight 90 kg, blood pressure 129/75, pulse 95, respiratory rate 22, temperature 97.7, and oxygen saturation 100% on room air. GENERAL: The patient is a 40-year-old female, who appears older than stated age with some mild labored breathing. HEENT: Normocephalic and atraumatic. Pupils are equal, round, and reactive to light. Extraocular motions are intact. Mucous membranes are moist. NECK: Supple. There is no nuchal rigidity. CARDIOVASCULAR: Regular rate and rhythm. No murmurs, rubs, or gallops. LUNGS: Clear to auscultation bilaterally. ABDOMEN: The abdomen is mildly distended with fluid wave. There is some mild diffuse tenderness to palpation. Positive bowel sounds. MUSCULOSKELETAL: The patient ambulates and moves all 4 extremities. SKIN: Warm and dry. LABORATORY DATA AND X-RAYS: Labs and x-rays are pending at time of transfer of care. IMPRESSION: 1. Recurrent ascites. 2. Please see Dr. Knox's dictation. EMERGENCY DEPARTMENT COURSE: The patient brought back to the examination room. Seen and evaluated by myself. An IV is established. Laboratory analysis and imaging are obtained. PATIENT'S NAME: ROBERT BREWER [facility] AGE: 40 Y [address] ROOM: [place] [address] LOCATION: [facility] ADMIT DATE: 05/28/2016 ER/Outpatient Report DISCHARGE DATE: 05/28/2016 FAMILY PHYSICIAN: Hallie Keenan MD ATTENDING PHYSICIAN: Titi Amor Those results are pending at time of transfer of care. I did discuss the case with Dr. Knox as shift change. He will follow up on laboratory analysis. He will see the patient and provide further direction. DISPOSITION: Per Dr. Knox. DO JENNIFER YANES/kwesi /[id number] d: 05/29/1649 t: 05/29/16 0943, OUTPATIENT REPORT
[~2016-05-28 17:16] MED LIST changes: -CERTAVITE-ANTI1 EACH PO; -LEVAQUIN 750 M750 MG PO; -LOVENOX 8080 MG/0.8 SUB-Q; -PROTONIX40 MG PO; -THIAMINE HCL100 MG PO; -ZOFRAN4 MG PO
[2016-05-28 17:56] LABS: HEMATOCRIT 36.8 % (33.0-46.0); HEMOGLOBIN 11.4 g/dL (11.0-15.0); MCH 33.2 pg (27.0-34.0); MCV 107.3 fl (83.0-98.0); MPV 10.9 fl (9.4-12.4); RBC 3.43 M/uL (3.50-5.50); WBC 2.7 K/uL (4.0-11.0)
[2016-05-28 17:57] LABS: PLATELET COUNT 92 K/uL (150-450); RDW-CV 17.5 % (11.9-14.6)
[2016-05-28 18:04] LABS: INR - (THERAPEUTIC) 1.1 (0.9-1.1); PROTIME 11.2 SECONDS (9.6-11.1); PTT 36 SECONDS (25-32)
[2016-05-28 18:17] LABS: ALBUMIN 2.4 gm/dL (3.5-5.0); ALK PHOS 419 IU/L (33-138); ALT 40 IU/L (12-78); AST 62 IU/L (10-40); BLOOD UREA NITROGEN 12 mg/dL (6-24); CALCIUM 7.8 mg/dL (8.5-10.5); CHLORIDE 106 mMol/L (96-110); CO2 26 mMol/L (22-32); CPK 40 IU/L (21-215); CREATININE 0.8 mg/dL (0.5-1.1); ESTIMATED GFR (MDRD EQUATION) > 60; SODIUM 140 mMol/L (135-145); TOTAL BILIRUBIN 1.5 mg/dL (0.0-1.5); TOTAL PROTEIN 6.6 g/dL (6.0-8.4)
[2016-05-28 18:31] LABS: ABSOLUTE NEUTROPHIL CT (ANC) 1.5 K/uL (1.8-7.8); BANDED NEUTROPHILS % 1 %; LYMPHOCYTE # 0.8 K/uL (0.8-4.0); LYMPHOCYTE % 31 %; MONOCYTE # 0.2 K/uL (0.0-1.0); SEGMENTED NEUTROPHIL # 1.5 K/uL (1.8-7.8); SEGMENTED NEUTROPHIL % 56 %
== END 2016-05-28 21:50 | disposition disaster alternative care site (69) ==
LOC: GMED 17:16
PROVIDERS: Emergency Medicine
DX: K70.31 Alcoholic cirrhosis of liver with ascites (principal); F31.9 Bipolar disorder, unspecified
CPT/HCPCS: J0744; J1940; J2270; P9047

== ENCOUNTER → 2016-05-29 | Outpatient (CLI) | payer MEDICAID ==
[~2016-05-29] MED LIST changes: +CERTAVITE-ANTI1 EACH PO; +LEVAQUIN 750 M750 MG PO; +LOVENOX 8080 MG/0.8 SUB-Q; +PROTONIX40 MG PO; +THIAMINE HCL100 MG PO; +ZOFRAN4 MG PO
[2016-05-29 11:13] LABS: PERITONEAL FLUID TURBIDITY 1+ (CLEAR)
[2016-05-29 12:08] LABS: % PERITONEAL FLUID MESO 9 % (0-0); % PERITONEAL FLUID MONO/MACRO 30 % (0-0); % PERITONEAL FLUID NEUT 30 % (0-25)
== END | disposition disaster alternative care site (69) ==
LOC: GRAD 10:16
PROVIDERS: Internal Medicine Gastroenterology
PROC: 0W9G3ZZ Drainage of Peritoneal Cavity, Percutaneous Approach (ICD-10-PCS; principal; 2016-05-29)
DX: R18.8 Other ascites (principal); R10.9 Unspecified abdominal pain

== ENCOUNTER 2016-05-30 19:23 | Emergency (ER) | payer MEDICAID ==
--- NOTE | ~2016-05-30 | ER ---
PATIENT'S NAME: OSMAN [facility] AGE: 40 Y [address] ROOM: [place] [address] LOCATION: [facility] ADMIT DATE: 05/30/2016 ER/Outpatient Report DISCHARGE DATE: 05/30/2016 FAMILY PHYSICIAN: Hallie Keenan MD ATTENDING PHYSICIAN: Royal Knox Time of Arrival: 1931. Time of Exam: 1931. CHIEF COMPLAINT: Abdominal pain. HISTORY OF PRESENT ILLNESS: The patient states having generalized abdominal pain that began suddenly this evening just prior to arrival. States she is nauseated, had vomited once just prior to arrival and vomited upon arrival. States she had a normal bowel movement today. Reports she last had a paracentesis tap done on 05/29/2016. Describes the pain as a crampy type pain. Denies any urinary frequency or urinary discomfort. ALLERGIES: SULFA, PENICILLIN. CURRENT MEDICATIONS: On her chart and reviewed by me. PAST MEDICAL HISTORY: Alcohol liver cirrhosis with ascites, esophageal varices, anxiety, bipolar disorder, PTSD, chronic back pain, narcotic abuse. PAST SURGERIES: Has had frequent ultrasound-guided peritoneal taps. SOCIAL HISTORY: History of alcohol and narcotic abuse. Reportedly last drink in January of 2016. REVIEW OF SYSTEMS: All negative other than those mentioned in the HPI. PHYSICAL EXAMINATION: VITAL SIGNS: She weighed 87.7 kg. Blood pressure is 122/64, pulse is 73, respirations 18, temperature of 96.6, O2 saturation was 96% on room air. GENERAL: She is awake, alert, and oriented x4. PATIENT'S NAME: OSMAN [facility] AGE: 40 Y [address] ROOM: [place] [address] LOCATION: [facility] ADMIT DATE: 05/30/2016 ER/Outpatient Report DISCHARGE DATE: 05/30/2016 FAMILY PHYSICIAN: Hallie Keenan MD ATTENDING PHYSICIAN: Royal Knox SKIN: [place], warm, and dry. RESPIRATIONS: Even and nonlabored. Lung sounds are clear throughout. HEART: Regular rate and rhythm. ABDOMEN: Round, slightly distended. Bowel sounds are audible. EMERGENCY DEPARTMENT COURSE: Saline lock was initiated. Normal saline was started. Zofran 4 mg IV was given. Lab work was drawn. She was given fentanyl 50 mcg IV for the pain. CBC was within normal limits. Chem panel: Sodium is 140, potassium is 3.9, chloride is 108. Her total bilirubin is 1.6. AST was 69. Amylase is 34, lipase is 151, lactose is 1.2. Procalcitonin was 0.05. Ammonia was 59. Clean-catch UA was obtained. It shows 100 leukocytes, positive for nitrites, rare bacteria. The patient was seen here in the ER on 05/28/2016, was given a prescription at that time for Cipro and [place]. She has not got it filled, has not started any of that medication. She was given Cipro 400 mg IV here in the ER. IMPRESSION: Urinary tract infection. PLAN: Home, rest, start the Cipro as prescribed. She does take Levaquin weekly at home. She is to stop that while she is on the Cipro. Her urine is being cultured and she is to follow up with Dr. Keenan in the next 2 to 3 days. She verbalized understanding. AMALIA LCIFTON APRN FOR MD DAVID ROSARIO/kwesi /[id number] d: 05/31/16 0407 t: 06/02/16 1804, OUTPATIENT REPORT
[~2016-05-30 19:23] MED LIST changes: -CERTAVITE-ANTI1 EACH PO; -LEVAQUIN 750 M750 MG PO; -LOVENOX 8080 MG/0.8 SUB-Q; -PROTONIX40 MG PO; -THIAMINE HCL100 MG PO; -ZOFRAN4 MG PO
[2016-05-30 19:58] LABS: EOSINOPHIL # 0.2 K/uL (0.0-0.5); EOSINOPHIL % 3.9 %; HEMATOCRIT 40.1 % (33.0-46.0); HEMOGLOBIN 12.4 g/dL (11.0-15.0); IMMATURE GRANULOCYTE % 0.3 %; LYMPHOCYTE # 0.6 K/uL (0.8-4.0); LYMPHOCYTE % 15.8 %; MCH 33.2 pg (27.0-34.0); MCHC 30.9 gm/dL (32.0-36.5); MCV 107.2 fl (83.0-98.0); MONOCYTE # 0.4 K/uL (0.0-1.0); MONOCYTE % 10.4 %; MPV 10.6 fl (9.4-12.4); NEUTROPHIL # (ANC) 2.7 K/uL (1.8-7.8); NEUTROPHIL % 68.6 %; NRBC % 0 /100WBC (0-0.00); PLATELET COUNT 95 K/uL (150-450); RBC 3.74 M/uL (3.50-5.50); RDW-CV 16.9 % (11.9-14.6); WBC 3.9 K/uL (4.0-11.0)
[2016-05-30 20:06] LABS: INR - (THERAPEUTIC) 1.1 (0.9-1.1); PROTIME 11.3 SECONDS (9.6-11.1); PTT 35 SECONDS (25-32)
[2016-05-30 20:08] LABS: BLOOD URINE NEGATIVE /UL (NEGATIVE); GLUCOSE URINE NEGATIVE (NEGATIVE); KETONE URINE 15 mg/dL (NEGATIVE); LEUKOCYTES URINE 100 /UL (NEGATIVE); NITRITE URINE POSITIVE (NEGATIVE); PROTEIN URINE 15 mg/dL (NEGATIVE); SPEC GRAVITY URINE 1.025 (1.003-1.035); UROBILINOGEN URINE 8 mg/dL (NORMAL)
[2016-05-30 20:16] LABS: ALBUMIN 2.7 gm/dL (3.5-5.0); ALT 43 IU/L (12-78); ANION GAP 10.9 (10.0-19.0); AST 69 IU/L (10-40); BLOOD UREA NITROGEN 12 mg/dL (6-24); CALCIUM 7.9 mg/dL (8.5-10.5); CHLORIDE 108 mMol/L (96-110); CO2 25 mMol/L (22-32); CREATININE 0.8 mg/dL (0.5-1.1); ESTIMATED GFR (MDRD EQUATION) > 60; POTASSIUM 3.9 mMol/L (3.7-5.1); SODIUM 140 mMol/L (135-145); TOTAL BILIRUBIN 1.6 mg/dL (0.0-1.5); TOTAL PROTEIN 7.1 g/dL (6.0-8.4)
[2016-05-30 20:18] LABS: ALK PHOS 427 IU/L (33-138)
[2016-05-30 20:19] LABS: COLOR URINE YELLOW (YELLOW); TURBIDITY URINE CLEAR (CLEAR)
[2016-05-30 20:22] LABS: BACTERIA URINE RARE (NEGATIVE)
== END 2016-05-30 22:27 | disposition disaster alternative care site (69) ==
LOC: GMED 19:23
PROVIDERS: Nurse Practitioner Family
DX: N39.0 Urinary tract infection, site not specified (principal); F31.9 Bipolar disorder, unspecified; Z88.0 Allergy status to penicillin; Z88.2 Allergy status to sulfonamides
CPT/HCPCS: J0744; J2405; J3010; J7030

== ENCOUNTER → 2016-06-03 | Outpatient (CLI) | payer MEDICAID ==
[~2016-06-03] MED LIST changes: +CERTAVITE-ANTI1 EACH PO; +LEVAQUIN 750 M750 MG PO; +LOVENOX 8080 MG/0.8 SUB-Q; +PROTONIX40 MG PO; +THIAMINE HCL100 MG PO; +ZOFRAN4 MG PO
[2016-06-03 12:44] LABS: INR - (THERAPEUTIC) 1.04 (0.92-1.07); PROTIME 10.9 SECONDS (9.8-11.4)
== END | disposition disaster alternative care site (69) ==
LOC: LGSMG 12:33
PROVIDERS: Internal Medicine
DX: R30.0 Dysuria (principal); R18.8 Other ascites

== ENCOUNTER → 2016-06-06 | Outpatient (CLI) | payer MEDICAID | END | disposition disaster alternative care site (69) | LOC: GOPP 13:00 | PROC: 0W9G3ZZ Drainage of Peritoneal Cavity, Percutaneous Approach (ICD-10-PCS; principal; 2016-06-06) | DX: R18.8 Other ascites (principal) | CPT/HCPCS: P9047 ==

== ENCOUNTER 2016-06-09 15:01 | Inpatient (IN) | payer MEDICAID ==
[~2016-06-09] VITALS: Ht 162.6 cm; Wt 85.7 kg
--- NOTE | ~2016-06-09 | DS ---
PATIENT'S NAME: ROBERT BREWER [facility] AGE: 40 Y [address] ROOM: [place] [address] LOCATION: [facility] [place] ADMIT DATE: 06/09/2016 Discharge Summary DISCHARGE DATE: 06/10/2016 FAMILY PHYSICIAN: Hallie Keenan MD ATTENDING PHYSICIAN: Hortencia Dc CONSULTING PHYSICIAN: Dr. Malika AGUILAR. DISCHARGE DIAGNOSES: 1. Decompensated liver disease with ascites. 2. Acute hepatic encephalopathy. 3. Left-sided abdominal pain. 4. Left pleural effusion. 5. Partial portal vein thrombosis. 6. Thrombocytopenia. 7. Neutropenia. HOSPITAL COURSE: Please refer to admitting history and physical as dictated by Dr. Huff. Briefly, the patient was admitted to [facility] for decompensated liver disease and worsening of her ascites. She had a paracentesis done yesterday, 5.6 L was removed. She was placed on Levaquin for concern of spontaneous bacterial peritonitis. Her home diuretics, lactulose, and rifaximin were continued. With her history of partial portal vein thrombosis, she was on Lovenox; however, was held on 06/10/2016 due to her thrombocytopenia and platelets of 67. Due to the patient's decompensated liver disease, it was felt as though she needs to be transferred [facility] for further evaluation and treatment. Arrangements were made for transfer. Vital signs were stable. Fentanyl was used for pain control for her left-sided abdominal pain. On 06/10/2016, the patient was transferred to [facility] for further evaluation of her decompensated liver disease. LABORATORY DATA: Sodium remained stable 140-141, potassium 3.9-4.3, anion gap 10.9-14.1, calcium 8.2, BUN 15, creatinine 0.7-0.8, albumin 3.0, total bili 1.2-1.6, alk phos 335, AST 58, ALT 32, GFR remained greater than 60, ammonia 77. Peritoneal fluid amylase 5, protein less than 2.0, albumin less than 0.6, LDH 35. WBCs 1.8-2.7, hemoglobin 11.2-12.3, and platelets 65-68. Peritoneal fluid color yellow, rbcs 3000, wbcs 1, 91% neutrophils, 10% lymphs, 38% mono/macro, 50% MeSO2. Procal 0.05. UA epithelial 5-10, bacteria few, mucus 1+, nitrites negative, and leukocytes 25. Urine culture is pending. Blood cultures, no growth to-date. Peritoneal fluid culture, no growth at 1 day. TRANSFER INSTRUCTIONS: The patient will be transferred via ambulance to [facility] in [place]. Dr. Acevedo is the accepting physician. The patient is stable at the time of transfer. PATIENT'S NAME: [facility] AGE: 40 Y [address] ROOM: [id number] [place], [place] [address] LOCATION: [facility] [place] ADMIT DATE: 06/09/2016 Discharge Summary DISCHARGE DATE: 06/10/2016 FAMILY PHYSICIAN: Hallie Keenan MD ATTENDING PHYSICIAN: Hortencia Dc DIET: Regular. ACTIVITIES: As tolerated. MEDICATIONS: 1. Levaquin 750 mg p.o. every 7 days. 2. Amitriptyline 150 mg p.o. q.h.s. 3. Lovenox 80 mg subcu twice daily. 4. Feosol 325 mg p.o. t.i.d. 5. Lasix 40 mg p.o. every morning, hold if systolic blood pressure is less than 100. 6. Lactulose 45 mL p.o. 4 times a day. 7. Levothyroxine 25 mcg p.o. daily. 8. Protonix 20 mg p.o. twice daily. 9. Rifaximin 550 mg p.o. twice daily. 10. Florastor 250 mg p.o. daily. 11. Aldactone 100 mg p.o. twice daily. 12. Topamax 25 mg p.o. twice daily. 13. Effexor 75 mg p.o. twice daily. 14. Fentanyl 25 mcg IV every 3 hours as needed for pain. 15. Morphine 2 mg IV every 2 hours as needed for pain. 16. Albuterol 2 puffs every 6 hours as needed for shortness of breath. 17. Folic acid 1 mg p.o. daily. Thank you for allowing us to participate in the care of this patient as she has been hospitalized at [facility]. AVTAR SIERRA APRN FOR HORTENCIA DC MD KRR/modl /[id number] CC: Hallie Keenan MD d: 06/11/16 0700 t: 06/21/16 1202, DISCHARGE SUMMARY
--- NOTE | ~2016-06-09 | HP ---
PATIENT'S NAME: ROBERT BREWER [facility] AGE: 40 Y [address] ROOM: [address] [place] [address] [place]: [facility] [place] ADMIT DATE: 06/09/2016 History & Physical DISCHARGE DATE: FAMILY PHYSICIAN: Hallie Keenan MD ATTENDING PHYSICIAN: FARIDA WRAY DATE OF SERVICE: CHIEF COMPLAINT: Abdominal distention and abdominal pain. HISTORY OF PRESENT ILLNESS: This is a 40-year-old female who was discharged here from our facility back in April 2016 for recurrent ascites from the end-stage liver disease with cirrhosis from alcohol induced (already sober), currently awaiting evaluation for a liver transplant in [place]. During that admission, the patient was also found to have a partial thrombosis of the portal vein and the patient was started on Lovenox subcutaneous 80 mg twice a day. Her ascites was treated with paracentesis and pain control with morphine and fentanyl p.r.n. Continued her diuretics at that time as well. The patient says that after discharge she was doing well; however due to some paperwork problem in her insurance coverage and problem with prescription quantity, according to the patient, from the primary care physician's office, the patient was on Lovenox for a few days, but then she stopped using the Lovenox because she did not have any more. Last dose of Lovenox was last Monday. Usually, the patient gets a once a week paracentesis performed here. Last time she had the paracentesis was on May 07, 2016, and 5 L of ascitic fluid was removed. The patient says that a day before the paracentesis she started feeling this abdominal pain and abdominal distention and initially she thought that after the paracentesis, her pain would go away, but it persisted. She states the abdomen is less distended, but is roller print tender to touch. The patient was seen today in the [facility] and was referred here for the worsening abdominal pain. The patient did state that she had some relief from the abdominal pain, is getting slightly better at the moment, but is roller print tender to palpation. Some shortness of breath, but not a lot and does not affect her daily activities. The patient is scheduled to see a specialist in [place] in June 2016 to do some liver assessment in preparation for liver transplant evaluation according to the patient. Otherwise, the patient denies any other symptoms. She denies any fever, chills, chest pain, palpitation, diaphoresis, or cough. REVIEW OF SYSTEMS: As mentioned in history of present illness. All other systems reviewed and negative except those mentioned in the history of present illness. PATIENT'S NAME: ROBERT BREWER [facility] AGE: 40 Y [address] ROOM: [place] [address] [place]: [facility] [place] ADMIT DATE: 06/09/2016 History & Physical DISCHARGE DATE: FAMILY PHYSICIAN: Hallie Keenan MD ATTENDING PHYSICIAN: FARIDA WRAY PAST MEDICAL HISTORY: 1. End-stage liver disease from alcoholic cirrhosis. 2. Recurrent ascites from end-stage liver cirrhosis. 3. Prior history of esophageal variceal bleeding according to the patient. 4. Depression. 5. Partial thrombosis of the portal vein. ALLERGIES: TO PENICILLIN AND SULFA. HOME MEDICATIONS: 1. Lactulose 45 mL p.o. 4 times daily. 2. Levaquin 750 mg p.o. once every week on every Monday. 3. Levothyroxine 25 mcg p.o. daily. 4. Omeprazole 20 mg p.o. b.i.d. 5. Potassium chloride 40 mEq p.o. every morning. 6. Propranolol 10 mg p.o. daily. 7. Rifaximin 550 mg p.o. b.i.d. 8. Albuterol 2-puff inhalation every 6 hours p.r.n. for shortness of breath or wheezing. 9. Amitriptyline 150 mg p.o. every night at bedtime. 10. Lovenox 80 mg subcutaneous every 12 hours. 11. Ferrous sulfate 325 mg p.o. t.i.d. 12. Folic acid 1 mg p.o. daily. 13. Lasix 40 mg p.o. daily. 14. Florastor 250 mg p.o. daily. 15. Spironolactone 100 mg p.o. b.i.d. 16. Topamax 25 mg p.o. b.i.d. 17. Venlafaxine 75 mg p.o. b.i.d. SOCIAL HISTORY: Former cigarette smoker, quit in January 2016. Used to smoke about a half pack per day since she was 13 years old. She was a former heavy alcohol drinker, quit about a year ago and has been sober. She had been drinking since she was 21 years old, a large amount of alcohol. 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 Denies any IV drug use. FAMILY HISTORY: Father had some kind of heart problem, but she could not remember all the details. Mother is healthy according to the patient. PAST SURGICAL HISTORY: Status post left leg surgery in the past, details are not clear. PATIENT'S NAME: ROBERT BREWER [facility] AGE: 40 Y [address] ROOM: [address] [address] LOC[place]: [facility] [place] ADMIT DATE: 06/09/2016 History & Physical DISCHARGE DATE: FAMILY PHYSICIAN: Hallie Keenan MD ATTENDING PHYSICIAN: FARIDA WRAY PHYSICAL EXAMINATION: VITAL SIGNS: Temperature 97.8, heart rate 73, respirations 18, blood pressure 116/74, and saturation 98% on room air. GENERAL APPEARANCE: Alert and oriented x3, in no acute distress. HEENT: Pupils equally round and reactive to light. Extraocular muscles are intact. Anicteric sclerae. Nasal turbinates are normal bilaterally. Moist oral mucosa. NECK: No JVD. CARDIOVASCULAR: Regular rate and rhythm. Normal S1, S2. No murmur. No rubs. No gallops. RESPIRATORY: Clear. Chest wall nontender to palpation. ABDOMEN: Distended, soft, ascitic. Bowel sounds are present but distant due to ascites. No palpable mass. Mild tenderness to palpation diffusely. No abdominal rigidity. EXTREMITIES: No edema in upper or lower extremities. NEUROLOGICAL: Grossly nonfocal. SKIN: No ulcer, no rash, no cyanosis. Mildly jaundiced. MUSCULOSKELETAL: No joint pain. No muscle pain. Range of motion intact. LABORATORY DATA: Lactic acid 1.1. White blood cell 2.0, hemoglobin 11.5, hematocrit 36.3, MCV 106.1, and platelets 68. Glucose 75, BUN 15, creatinine 0.7, sodium 141, potassium 4.1, chloride 108, and CO2 23. Calcium 8.0, total protein 6.8, albumin 3.0, AST 58, ALT 32, alkaline phosphatase 335, total bilirubin 1.6, and direct bilirubin 0.9. GFR more than 60. Anion gap 14.1. INR 1.06. Procalcitonin 0.05. Ascitic fluid study is currently pending. IMAGING STUDIES: Chest x-ray currently is pending. ASSESSMENT AND PLAN: 1. Abdominal distention and abdominal pain in the setting of recurrent ascites from end-stage liver disease from alcoholic cirrhosis: The patient has been here several times before. She has had several thoracenteses done before and the spontaneous bacterial peritonitis last time was not present. Eventually, the patient will require liver transplant given the patient is having end-stage liver disease with refractory ascites. The patient is already status post 5.6 L of ascetic fluid drained today by the radiologist and the plan will be to replace albumin 25% with an 8 g per each L of the ascetic fluid removal. Cover her empirically with IV Levaquin for the suspicion of spontaneous bacterial peritonitis. Follow up on the ascetic fluid studies looking PATIENT'S NAME: ROBERT BREWER [facility] AGE: 40 Y [address] ROOM: [place] [address] [place]: [facility] [place] ADMIT DATE: 06/09/2016 History & Physical DISCHARGE DATE: FAMILY PHYSICIAN: Hallie Keenan MD ATTENDING PHYSICIAN: FARIDA WRAY for neutrophil to see if it is more than 250. Pain control with morphine p.r.n. and fentanyl p.r.n. I am not going to draw blood culture or urine culture, given that the patient has been here with a similar presentation in the past and few times the ascetic fluid came back negative, and the patient was just actually having abdominal pain and distention from refractory and recurrent ascites, requiring paracentesis for relief. Unless her condition changes, then I will get blood culture and urine culture, but currently the patient does not look septic. She is already getting relief after the paracentesis. We will consult GI in the morning for further recommendation. Perhaps, patient will need to be transferred to [place] given the patient has an upcoming appointment in June 2016 to assess for liver transplantation. We will continue her home medication with diuretics and also lactulose and rifaximin. Avoid beta john and avoid NSAID in the setting of ascites. I will watch the kidney function closely to monitor for hepatorenal syndrome. Further plan depends on clinical course. She also will be on low-sodium diet. 2. Partial portal vein thrombosis: Resume the home Lovenox 1 mg/kg every 12 hours. Monitor for any signs of bleeding. I will also get a chest x-ray to look for the recurrent pleural effusion; if there is anything present, given that the patient did require thoracocentesis last time to remove her left pleural effusion. Currently, the lung sounds are clear, saturation is 96% on room air. We will follow up on the chest x-ray imaging once is taken to see if there is any reaccumulation of pleural fluid. We will use IV Levaquin to treat for the suspected spontaneous bacterial peritonitis because the patient has allergy to penicillin; therefore, ceftriaxone would not be used. 3. Regarding her DVT prophylaxis: She will be on heparin subcutaneous already twice a day. Time spent in care on the day of admission 35 minutes including chart review, interviewing the patient, addressing all the questions concerning the patient, and going over the plan of care with the patient. REBEKA MINOR MD CC/modl /[id number] D: T: [id number] HISTORY & PHYSICAL
[~2016-06-09 15:01] MED LIST changes: -CERTAVITE-ANTI1 EACH PO; -LEVAQUIN 750 M750 MG PO; -LOVENOX 8080 MG/0.8 SUB-Q; -PROTONIX40 MG PO; -THIAMINE HCL100 MG PO; -ZOFRAN4 MG PO
[2016-06-09 17:05] LABS: PERITONEAL FLUID TURBIDITY 2+ (CLEAR)
[2016-06-09] MEDS ORDERED: LOVENOX 8080 MG/0.8 SUB-Q (17:11)
[2016-06-09] MEDS ORDERED: LEVAQUIN 750 M750 MG PO (17:12)
[2016-06-09 17:17] LABS: AMYLASE - FLUID 5 IU/L
[2016-06-09 17:47] LABS: % PERITONEAL FLUID MESO 2 % (0-0); % PERITONEAL FLUID MONO/MACRO 50 % (0-0); % PERITONEAL FLUID NEUT 10 % (0-25)
--- NOTE | 2016-06-09 18:58 | NUR ---
Patient is 40 yo female admitted with cirrhosis of liver and increasing ascites and shortness of breath. patient has history of alcoholism, states she quit in 01/2016,. has used marijuana and meth. states she quit a couple of years ago. states she has Rx pain meds she has taken as well. is on fluid restriction at home. has history of PTSD, and abuse. is bipolar as well. saline lock is noted in left hand without erythema or edema noted at site. education is given as documented. patient denies questions. pneumatics are on bilat calves. call light is within reach. denies needs. family at bedside. report is given to RONALDO Montalvo.
--- NOTE | 2016-06-09 19:09 | NUR ---
Significant Event: A/O. IV STARTED TO R HAND, ALBUMIN RUNNING. MS GAVE AT APPROX 1850. HAND TURNED RED AFTER DOSE GAVE, NO C/O ITCHING OR PAIN AT SITE. HAD CHEST XRAY. AMBULATES WITH SBA. DID FALL PRIOR TO ADMISSION. PARACENTESIS SITE TO R ABDOMEN. REPORTED 5.6L REMOVED. STARTED ON 1.2L FLUID RESTRICTIONS, LOW SODUIM DIET. Follow up: CONTINUE TO MONITOR
[2016-06-09 19:36] LABS: HEMATOCRIT 36.3 % (33.0-46.0); HEMOGLOBIN 11.5 g/dL (11.0-15.0); MCH 33.6 pg (27.0-34.0); MCHC 31.7 gm/dL (32.0-36.5); MCV 106.1 fl (83.0-98.0); MPV 11.5 fl (9.4-12.4); PLATELET COUNT 68 K/uL (150-450); RBC 3.42 M/uL (3.50-5.50); RDW-CV 16.5 % (11.9-14.6)
[2016-06-09 19:47] LABS: INR - (THERAPEUTIC) 1.06 (0.92-1.07); PROTIME 11.1 SECONDS (9.8-11.4)
[2016-06-09 19:59] LABS: ALK PHOS 335 IU/L (33-138); ALT 32 IU/L (12-78); ANION GAP 14.1 (10.0-19.0); AST 58 IU/L (10-40); BLOOD UREA NITROGEN 15 mg/dL (6-24); CHLORIDE 108 mMol/L (96-110); CO2 23 mMol/L (22-32); CREATININE 0.7 mg/dL (0.5-1.1); ESTIMATED GFR (MDRD EQUATION) > 60; POTASSIUM 4.1 mMol/L (3.7-5.1); SODIUM 141 mMol/L (135-145); TOTAL BILIRUBIN 1.6 mg/dL (0.0-1.5); TOTAL PROTEIN 6.8 g/dL (6.0-8.4)
[2016-06-09 20:33] LABS: ABSOLUTE NEUTROPHIL CT (ANC) 1.3 K/uL (1.8-7.8); BANDED NEUTROPHIL # 0.2 K/uL (0.0-0.1); BANDED NEUTROPHILS % 8 %; LYMPHOCYTE # 0.4 K/uL (0.8-4.0); LYMPHOCYTE % 22 %; MONOCYTE # 0.1 K/uL (0.0-1.0); SEGMENTED NEUTROPHIL # 1.2 K/uL (1.8-7.8); SEGMENTED NEUTROPHIL % 58 %
--- NOTE | 2016-06-10 03:15 | NUR ---
Significant Event: Patient alert and oriented X4. Up with stand by assist, and gait belt. IV to R) hand, received albumin and levoquin this shift. IV morphine last given at 0215. Relief noted. Vitals stable and on room air. Daily weight. Strict I&O. Voided X1 but missed hat. Needs UA collected yet. PNeumatics on. Paracentesis site to R) lower abdomen clean/dry/intact. 1200ml fluid restrict. GI to see in am Follow up: Monitor paracentisis site
[2016-06-10 05:48] LABS: HEMATOCRIT 35.1 % (33.0-46.0); HEMOGLOBIN 11.2 g/dL (11.0-15.0); MCH 33.6 pg (27.0-34.0); MCHC 31.9 gm/dL (32.0-36.5); MCV 105.4 fl (83.0-98.0); MPV 10.7 fl (9.4-12.4); RBC 3.33 M/uL (3.50-5.50); RDW-CV 16.1 % (11.9-14.6)
[2016-06-10 05:50] LABS: WBC 1.8 K/uL (4.0-11.0)
[2016-06-10 05:51] LABS: BILIRUBIN URINE NEGATIVE (NEGATIVE); BLOOD URINE NEGATIVE /UL (NEGATIVE); COLOR URINE YELLOW (YELLOW); GLUCOSE URINE NEGATIVE (NEGATIVE); KETONE URINE NEGATIVE (NEGATIVE); LEUKOCYTES URINE 25 /UL (NEGATIVE); NITRITE URINE NEGATIVE (NEGATIVE); PROTEIN URINE NEGATIVE (NEGATIVE); TURBIDITY URINE CLEAR (CLEAR); UROBILINOGEN URINE 4 mg/dL (NORMAL)
[2016-06-10 05:59] LABS: BACTERIA URINE FEW (NEGATIVE); MUCUS URINE 1+ (NEGATIVE); RBC URINE NEGATIVE #/HPF (NEGATIVE)
[2016-06-10 06:04] LABS: ANION GAP 10.9 (10.0-19.0); BLOOD UREA NITROGEN 15 mg/dL (6-24); CALCIUM 8.2 mg/dL (8.5-10.5); CHLORIDE 110 mMol/L (96-110); CO2 23 mMol/L (22-32); CREATININE 0.7 mg/dL (0.5-1.1); ESTIMATED GFR (MDRD EQUATION) > 60; POTASSIUM 3.9 mMol/L (3.7-5.1); SODIUM 140 mMol/L (135-145)
--- NOTE | 2016-06-10 11:30 | NUR ---
Spoke with Alina Keene with GI. She wants to see if they can't get patient to [place] today. 1145 After talking with charge nurse Lachelle called EMS to give them a heads up we may need a transport later today to [facility]. 1530 Had various discussions with stella Larose. She got EMS lined up, I am not needed to assist in any other way.
--- NOTE | 2016-06-10 12:32 | NUR ---
I have examined the student charting and find it acceptable. RONALDO Damico
--- NOTE | 2016-06-10 16:00 | NUR ---
Significant Event: Patient up with 1 standby assist as she fell on 06/09/16. Patient states her knee gave out and she went down. Patient fell at home prior to being admitted to the hospital. Patient had paracentesis yesterday and they were able to get 5.6 liters of fluid off. Patient has been complaining of left lateral lower rib pain. When patient takes in a deep breath, her stomach actually jerks to the side. Have been giving fentanyl for pain--last 25 mcg dose given at 1457 with some relief noted. Last BM was on 06/08/16. Patient does get lactulose 4 times daily. IV to right hand. Abdomen rounded and distended. Daily standing weight this a.m. was 85.7 kg. Patient does have history of marijuana and meth and alcohol. States she stopped alcohol in 01/2016. Patient is on a fluid restriction and has had 720 ml of fluid in so far. Patient is also on a low salt diet. Follow up: Transfer to [facility].
== END 2016-06-10 16:15 | disposition hospice, home (50) | DRG 441 ==
LOC: GMSU 15:01 → GRAD 15:01 → GMSU 15:02 → GRAD 15:02 → GMSU 06-10 16:15
PROVIDERS: Internal Medicine; Registered Nurse; ADMIT Internal Medicine
PROC: 0W9G3ZZ Drainage of Peritoneal Cavity, Percutaneous Approach (ICD-10-PCS; principal; 2016-06-09)
DX: K72.00 Acute and subacute hepatic failure without coma (principal); I81 Portal vein thrombosis; J90 Pleural effusion, not elsewhere classified; K65.2 Spontaneous bacterial peritonitis; D70.9 Neutropenia, unspecified; R18.8 Other ascites; D69.6 Thrombocytopenia, unspecified; J98.4 Other disorders of lung; K74.60 Unspecified cirrhosis of liver; R10.9 Unspecified abdominal pain
CPT/HCPCS: J1650; J1956; J2270; J3010; J7050; P9047

== ENCOUNTER 2016-06-17 07:54 | Inpatient (IN) | payer MEDICAID ==
[~2016-06-17] VITALS: Ht 170.2 cm; Wt 96.0 kg
--- NOTE | ~2016-06-17 | HP ---
PATIENT'S NAME: [facility] AGE: 40 Y [address] ROOM: [address] [address] LOCATION: GICU ADMIT DATE: 06/17/2016 History & Physical DISCHARGE DATE: FAMILY PHYSICIAN: Hallie Keenan MD ATTENDING PHYSICIAN: NIKOLAS FELIX DATE OF SERVICE: CHIEF COMPLAINT: Unresponsiveness. HISTORY OF PRESENT ILLNESS: This is a 40-year-old female with end-stage alcoholic liver cirrhosis with massive recurrent ascites that requires frequent paracentesis, who was brought in by the unit to the emergency room of [facility] this morning. History as obtained from the mother as the patient is currently intubated and unresponsive. Mother states that she was recently discharged on Monday 5 days ago from the [facility], after the patient was transferred there last Monday from [facility] to be evaluated for TIPS placement. Mother report that while she was at [facility], they did a thoracocentesis for a recurrent pleural effusion and also was evaluated by the Hepatology team and also by the Pulmonary Team. She reported that at 3 a.m. on the morning of discharge, the patient had an episode of vomiting blood, which soiled her hospital gown and her hands. However, she was still discharged home as the doctors said probably maybe the clips on the varices had slipped. Mother reported that on arriving home, the patient also had episodes of vomiting for 2 days after the got home, but the patient reported that there were nonbloody. She reported that yesterday the patient was kind of more confused, finding it difficult to make her bed. She reported that this morning between 7 a.m. and 8 a.m. that the kids yelled, came to call her that the mother was found on the floor unresponsive. She reported that when she arrived there, the patient was agonal breathing that was noisy and was nonresponsive. She was moving her upper extremity though she denied it being any seizure like pattern and so she called the unit. On arrival to the ER, the patient was completely unresponsive. Per the ER doctor, the patient was having stridor and was also blood in the patient's mouth, and so the patient was intubated and was given vecuronium prior to intubation. Also in the ER they did get a CT of the head, which was negative and also had a diagnostic paracentesis done, which revealed 235 white blood cells and she was given Rocephin in the ER. She did also get a chest x-ray in the ER, which revealed deviation of the trachea to the right with a large left pleural effusion, so the patient was transferred upset to the ICU. During my evaluation in the ICU, the patient's pupils were fixed and dilated not responsive and she was also having an agonal breathing on the ventilator as well the Gastroenterology Team was also evaluating the patient. After discussing with the GI team, they felt it is best if the patient is PATIENT'S NAME: [facility] AGE: 40 Y [address] ROOM: [address] [address] LOCATION: [facility] ADMIT DATE: 06/17/2016 History & Physical DISCHARGE DATE: FAMILY PHYSICIAN: Hallie Keenan MD ATTENDING PHYSICIAN: NIKOLAS FELIX transferred out of the unit to a higher level of care. Per the ER doctor, he reported that the patient's pupils were about the same of fixed and dilated and not responsive prior to receiving the vecuronium though the eyeballs were moving on arrival. REVIEW OF SYSTEMS: Unable to obtain as the patient is currently intubated and also obtunded. PAST MEDICAL HISTORY: Includes: 1. End-stage alcoholic liver disease with recurrent massive ascites. 2. Esophageal varices. 3. Recurrent left pleural effusion. PAST SURGICAL HISTORY: Left leg surgery. SOCIAL HISTORY: Now lives with her mom and her kids. Former alcoholic. However, she is sober now, also former smoker and was also a former meth use. FAMILY HISTORY: Mother is alive and father had some heart problems, but all this per old records. PHYSICAL EXAMINATION: VITAL SIGNS: In ICU temperature 98.2, pulse 98, respiratory rate 18, oxygen saturation 100%, on FiO2 of 100. GENERAL: Reveals a young female who is on the ventilator having an agonal breathing on ventilator. NEUROLOGICAL: Unable to assess the cranial nerves as the patient is completely unresponsive. HEENT: Normocephalic and atraumatic. Pupils are dilated, fixed, and nonreactive to light. Pharynx: She has an ET tube to be in place. The pharynx is has a dried blood covering it. Ear: There is no obvious ear discharge or drainage. NECK: Supple. CARDIOVASCULAR: Normal S1 and S2. Regular rate and rhythm. CHEST: Coarse breath sounds all over the lung field with reduced breath sounds on the left. ABDOMEN: Distended. No palpable organomegaly. Ascites demonstrable by a fluid thrill. SKIN: There is no rash. There is no icteric skin. EXTREMITIES: There is no joint swelling or erythema. PATIENT'S NAME: [facility] AGE: 40 Y [address] ROOM: [id number] [place], [place] [address] LOCATION: [facility] ADMIT DATE: 06/17/2016 History & Physical DISCHARGE DATE: FAMILY PHYSICIAN: Hallie Keenan MD ATTENDING PHYSICIAN: NIKOLAS FELIX LABORATORY DATA: On admission, lactic acid was 1.6. ABG: pH 7.34, PO2 61, pCO2 12, bicarb 6.5 on room air. WBC 13.5, H and H 8.8/26.8, platelet 212. Sodium 139, creatinine 1.0, BUN 22, glucose 119, potassium 4.4, chloride 108, bicarb 18, calcium 8.0, ALT 38, AST 59, alkaline phosphatase 309, total bilirubin 2.5, albumin 2.6, total protein 6.3. INR 1.4. UA: Leukocytes 25, nitrite negative, wbc's 10 to 20. UA negative. Salicylates less than 2.8. Acetaminophen less than 2.0. CRP 3.17, 0.09. MICROBIOLOGY: Stool for heme test was positive. Ascitic fluid for Gram stain, no organisms observed. Many white blood cells, many red blood cells. RADIOLOGY: CT chest: Report attention left hydrothorax. Right lung areas of consolidation could be aspiration. Cirrhosis with large ascites. CT of the head negative for any acute changes. Chest x-ray: Large left pleural effusion producing mass-effect. ASSESSMENT AND PLAN: This is a 40-year-old female, who comes in with unresponsiveness. 1. Acute complete unresponsiveness from hepatic encephalopathy, may also having complicated by anoxic injury. Given the fact that we do not know the down time for the patient. Present on admission. 2. Acute hepatic encephalopathy. We will continue the patient on the on the lactulose enema. POA 3. Upper gastrointestinal bleed, probably from variceal bleed because we are going to be transferring the patient out GI were initially seen. However, they did put this on hold secondary to the transfer. We will start the patient on octreotide and continue the patient on Protonix. 4. Acute blood loss anemia present on admission. Will type and cross the patient and transfer her with at least 2 units of blood. Present on admission. 5. Massive left pleural effusion, present on admission. Reviewed by the lamp shade assembler. However since the patient is going to be transferred out, no intervention right now. POA 6. Acute hypoxic respiratory failure from combination of both massive left pleural effusion as well as acute encephalopathy, present on admission. This may also have been complicated by possibly aspiration. 7. End-stage alcoholic liver cirrhosis with massive ascites. Management is going to be per the GI team when the patient gets to [facility]. POA 8. Probably spontaneous bacterial peritonitis. The patient has received one dose of Rocephin in the ER and we will probably add a clindamycin given the chest x-ray finding of a right lung consolidation, which may have occurred from aspiration.POA PATIENT'S NAME: [facility] AGE: 40 Y [address] ROOM: [place] [address] LOCATION: [facility] ADMIT DATE: 06/17/2016 History & Physical DISCHARGE DATE: FAMILY PHYSICIAN: Hallie Keenan MD ATTENDING PHYSICIAN: NIKOLAS FELIX 9. Questionable aspiration pneumonia. During that period, the patient was unresponsive, duration unknown. So, we will start the patient on clindamycin. The line of management was explained to the patient's mother and also I did discuss with the patient's mom the very poor prognosis and the reason for transfer. MD NEIDA CHUA/kwesi /[id number] D: T: 630 HISTORY & PHYSICAL
--- NOTE | ~2016-06-17 | HP ---
PATIENT'S NAME: ROBERT BREWER [facility] AGE: 40 Y [address] ROOM: [place] [address] LOCATION: [facility] ADMIT DATE: 06/17/2016 History & Physical DISCHARGE DATE: FAMILY PHYSICIAN: Hallie Keenan MD ATTENDING PHYSICIAN: NIKOLAS FELIX DATE OF SERVICE: ADDENDUM: Critical care time spent on this patient is approximately 1 hour which included discussing with the [facility] doctors for transfer and also updating the patient's mother and also answering her questions. MD NEIDA CHUA/kwesi /[id number] D: T: 633 HISTORY & PHYSICAL
--- NOTE | ~2016-06-17 | ER ---
PATIENT'S NAME: ROBERT [facility] AGE: 40 Y [address] ROOM: [place] [address] LOCATION: GICU ADMIT DATE: 06/17/2016 ER/Outpatient Report DISCHARGE DATE: FAMILY PHYSICIAN: Hallie Keenan MD ATTENDING PHYSICIAN: NIKOLAS FELIX CHIEF COMPLAINT: Unresponsive. HISTORY OF PRESENT ILLNESS: Ms Olson arrives by ambulance for decreased responsiveness and possible seizure-like activity. EMS notes that the patient had some blood in the mouth and had been minimally responsive for them. She never had any hypoxia per the report. Blood pressure and heart rate have been okay for them. She got two total mg of Narcan, as it appeared as though, there was some concern at the home that she may have taken some other pain medication. She has a history of marked hepatic failure and is currently seeking transplant. She does have a history of esophageal varices as well as a course of ascites. Her mother gives collateral information that she has had a slow mental decline over the last 36-48 hours. She was most recently seen in our ER early morning after a fall, but was discharged. She has no other acute complaints at this time based on history. The mother notes that she was found sitting on the floor in her room with writhing movements, unresponsive with a funny breathing the entire time. PAST MEDICAL HISTORY: Notable for significant cirrhosis with varices and ascites, with a most recent calculated MELD score of 11 per family, likely alcoholic etiology. MEDICATIONS: Please see attached list. ALLERGIES: DOCUMENTED ON THE RECORD AND REVIEWED BY ME INCLUDE PENICILLIN AND SULFA. SOCIAL HISTORY: On the record and reviewed by me. REVIEW OF SYSTEMS: All systems were reviewed. As per family and EMS as noted above. The patient unable to give review of systems. PHYSICAL EXAMINATION: VITAL SIGNS: On arrival, blood pressure is 147/77, pulse is 104, respiratory PATIENT'S NAME: ROB[facility] AGE: 40 Y [address] ROOM: [address] [address] [facility] ADMIT DATE: 06/17/2016 ER/Outpatient Report DISCHARGE DATE: FAMILY PHYSICIAN: Hallie Keenan MD ATTENDING PHYSICIAN: OLADEJI,NIKOLAS D rate is 32, temp is 98.3, and SpO2 is 93% on room air. GENERAL: A frail ill-appearing female recumbent on the bed with writhing movements, blood in the mouth, and stridorous respirations. NEURO: The patient is not awake. Eyes are open. She is nonverbal. She is moving all extremities spontaneously, but not purposeful. She does not react to confrontation. She has roving eye movements. The pupils are dilated at 5- 7 mm, minimally reactive to light bilateral. HEENT: Normocephalic, atraumatic. The eyes are dilated and minimally reactive bilateral. Extraocular movements are intact. The oropharynx is notable for significant amounts of blood, dried. No evidence of active bleeding. The patient does have stridorous respirations. NECK: Supple. The trachea does appear to be midline. CHEST: Bilateral breath sounds are present with slightly diminished on the left. No obvious rhonchi, rales, or wheezes in the chest. HEART: Tachycardic with no obvious murmurs. ABDOMEN: Distended, full, soft with no obvious masses. Right lower quadrant reveals paracentesis bandage. She has no masses. No evidence of bleeding. The belly is warm. EXTREMITIES: Cool with poor capillary refill. SKIN: Skin is cool peripherally, poor color pale. BACK: Not abnormal. RECTAL: Exam with diminished tone; however, was performed after RSI. No gross blood. No obvious stool in the rectal vault. LABORATORY DATA AND X-RAYS: Chest x-ray with left pleural effusion and mediastinal deviation to the right side. The endotracheal tube in good position. Chest CT similar. Head CT unremarkable per Radiology. LABS: The blood gas; pH 7.34, pCO2 is 12, pO2 is 61, bicarb is 6.5, CO2 is 7, FiO2 is room air. Ammonia is 298, up from 57, 36 hours ago. WBC is 13.5, up from 3.5, 36 hours ago. Hemoglobin 8.8, down from 10.4, and platelets of 212, up to 99. Peritoneal fluid turbidity is 2+, wbc's of 235, lactate is 1.6. EKG, has sinus tachycardia with normal intervals and axis. No acute ischemia or dysrhythmia. Hemoccult is pending. Gram stain is pending. IMPRESSION: 1. Hepatic encephalopathy with altered mental status. 2. Respiratory compromise with stridor, status post intubation. 3. Ascites with left pleural effusion. 4. Acute blood loss anemia. 5. Possible infection of undetermined etiology, no clear source. EMERGENCY DEPARTMENT COURSE: The patient was seen and evaluated. Based on her current presentation with blood in the mouth, seizure was considered possibility. She was not coming PATIENT'S NAME: [facility] AGE: 40 Y [address] ROOM: [place] [address] [facility] ADMIT DATE: 06/17/2016 ER/Outpatient Report DISCHARGE DATE: FAMILY PHYSICIAN: Hallie Keenan MD ATTENDING PHYSICIAN: NIKOLAS FELIX around and had persistent encephalopathy and thus she was given 3.75 mg diazepam which slowed down her unusual movements, but she continued to be very altered, completely unresponsive, and stridorous. DuoNeb and racemic epinephrine were administered with no improvement in her a usual breathing. The patient did not require supplemental oxygen for hypoxia, as her O2 sats remained above 90. The stridorous respirations continued to worsen and she had decrease in respiratory rate. No labs were available, and at that point, we elected to intubate her for airway protection. Her labs are not consistent with metabolic acidosis from a salicylate toxicity, although significant respiratory alkalosis of undetermined etiology, likely acute on chronic, secondary to her pleural effusion and ascites. There is no evidence of active bleeding, though she has had significant loss of approximately 1.5 g of hemoglobin in the last 36 hours. The patient remained otherwise stable postintubation. Head CT and chest CT were obtained with findings as noted above. The hospitalist was notified and agreed to admission to the intensive care unit for further evaluation and treatment. Dr. Fletcher, aircraft time clerk scorekeeper, was also consulted regarding this patient for recommendations regarding drainage of the chest fluid. She does not meet criteria for SBP and thus, no antibiotics were given for that. [place] was placed and the patient was taken to the ICU without significant difficulty. PROCEDURE NOTE: Intubation: The patient was deemed to be appropriate for airway protection. She was intubated using a four blade glide scope by Colette Egan MD, resident, under my immediate supervision. 20 of etomidate and 5 of vecuronium did not provide adequate paralysis and thus another 5 of vecuronium was administered to achieve paralysis. The patient was intubated with a grade 2 view of the glottis on the first attempt without difficulty. Tube was secured at 23 cm at the teeth. The patient did have desats to 70 immediately upon placement of the tube; however, bilateral breath sounds were present, after visualizing the balloon go through the glottis. She had no epigastric breath sounds. A vigorous bagging brought her oxygenation back up to 100%. She was titrated down to 40% FiO2, maintaining adequate oxygenation. Second procedure note: Diagnostic paracentesis. Ultrasound was used to identify ascites in the right lower quadrant. The area was cleaned with chlorhexidine extensively. The skin was retracted and an 18-gauge needle was introduced sterilely into the peritoneal with aspiration of 60 mL of a turbid yellow blood-tinged fluid. The patient had a bandage placed back over it without significant difficulty. CRITICAL CARE: 48 minutes critical care time was spent directly on this patient, the patient's evaluation, ordering and interpreting blood gas, other labs ordering, head CT, discussion with Radiology, consult with hospitalist, PATIENT'S NAME: [facility] AGE: 40 Y [address] ROOM: [place] [address] [facility] ADMIT DATE: 06/17/2016 ER/Outpatient Report DISCHARGE DATE: FAMILY PHYSICIAN: Hallie Keenan MD ATTENDING PHYSICIAN: NIKOLAS FELIX consult a scorekeeper, and ordering and interpreting the EKG. Critical care time is warranted for significant encephalopathy with respiratory distress and stridor. This is independent of airway management time. MD ROMAN GOMES/kwesi /[id number] d: 06/17/16 1143 t: 06/21/16 2213, OUTPATIENT REPORT
[~2016-06-17 07:54] MED LIST changes: -CERTAVITE-ANTI1 EACH PO; -PROTONIX40 MG PO; -THIAMINE HCL100 MG PO; -ZOFRAN4 MG PO
[2016-06-17 08:31] LABS: BICARBONATE 6.5 mmol/L (18.0-23.0); PO2 61 mmHg (80-90)
[2016-06-17 08:35] LABS: BASOPHIL # 0.1 K/uL (0.0-0.2); BASOPHIL % 0.5 %; EOSINOPHIL % 0.1 %; HEMATOCRIT 26.8 % (33.0-46.0); HEMOGLOBIN 8.8 g/dL (11.0-15.0); IMMATURE GRANULOCYTE # 0.1 K/uL (0.0-0.3); IMMATURE GRANULOCYTE % 0.4 %; LYMPHOCYTE # 1.6 K/uL (0.8-4.0); LYMPHOCYTE % 11.7 %; MCH 34.4 pg (27.0-34.0); MCHC 32.8 gm/dL (32.0-36.5); MCV 104.7 fl (83.0-98.0); MONOCYTE # 0.7 K/uL (0.0-1.0); MONOCYTE % 5.2 %; MPV 11.1 fl (9.4-12.4); NEUTROPHIL # (ANC) 11.1 K/uL (1.8-7.8); NEUTROPHIL % 82.1 %; NRBC % 0 /100WBC (0-0.00); RBC 2.56 M/uL (3.50-5.50); RDW-CV 15.9 % (11.9-14.6); WBC 13.5 K/uL (4.0-11.0)
[2016-06-17 08:35] LABS: PERITONEAL FLUID TURBIDITY 2+ (CLEAR)
[2016-06-17 08:39] LABS: PLATELET COUNT 212 K/uL (150-450)
[2016-06-17 08:46] LABS: PCO2 12 mmHg (35-45)
[2016-06-17 08:53] LABS: ALBUMIN 2.6 gm/dL (3.5-5.0); ALK PHOS 309 IU/L (33-138); ALT 38 IU/L (12-78); ANION GAP 17.4 (10.0-19.0); AST 59 IU/L (10-40); BLOOD UREA NITROGEN 22 mg/dL (6-24); CHLORIDE 108 mMol/L (96-110); CO2 18 mMol/L (22-32); ESTIMATED GFR (MDRD EQUATION) > 60; POTASSIUM 4.4 mMol/L (3.7-5.1); SODIUM 139 mMol/L (135-145); TOTAL PROTEIN 6.3 g/dL (6.0-8.4)
[2016-06-17 08:54] LABS: TOTAL BILIRUBIN 2.5 mg/dL (0.0-1.5)
[2016-06-17 08:59] LABS: BILIRUBIN URINE NEGATIVE (NEGATIVE); BLOOD URINE NEGATIVE /UL (NEGATIVE); COLOR URINE YELLOW (YELLOW); GLUCOSE URINE NEGATIVE (NEGATIVE); KETONE URINE NEGATIVE (NEGATIVE); LEUKOCYTES URINE 25 /UL (NEGATIVE); NITRITE URINE NEGATIVE (NEGATIVE); PROTEIN URINE NEGATIVE (NEGATIVE); TURBIDITY URINE CLEAR (CLEAR); UROBILINOGEN URINE 1 mg/dL (NORMAL)
[2016-06-17 09:05] LABS: BACTERIA URINE NEGATIVE (NEGATIVE); EPITHELIAL URINE NEGATIVE #/HPF (NEGATIVE); RBC URINE NEGATIVE #/HPF (NEGATIVE)
[2016-06-17 09:16] LABS: BARBITURATE NEGATIVE (NEGATIVE); COCAINE NEGATIVE (NEGATIVE); OPIATES POSITIVE (NEGATIVE)
[2016-06-17 09:18] LABS: INR - (THERAPEUTIC) 1.14 (0.92-1.07)
[2016-06-17 09:19] LABS: AMPHETAMINE NEGATIVE (NEGATIVE)
[2016-06-17 09:24] LABS: % PERITONEAL FLUID MONO/MACRO 69 % (0-0); % PERITONEAL FLUID NEUT 2 % (0-25)
[2016-06-17 09:25] LABS: % PERITONEAL FLUID MESO 14 % (0-0)
[2016-06-17] MEDS ORDERED: PROTONIX40 MG PO (10:33)
[2016-06-17] MEDS ORDERED: ZOFRAN4 MG PO (10:33)
[2016-06-17] MEDS ORDERED: THIAMINE HCL100 MG PO (10:33)
[2016-06-17] MEDS ORDERED: CERTAVITE-ANTI1 EACH PO (10:33)
[2016-06-17 13:57] LABS: HEMATOCRIT 28.3 % (33.0-46.0); HEMOGLOBIN 9.2 g/dL (11.0-15.0)
--- NOTE | 2016-06-17 14:29 | NUR ---
Significant Event: Withdraws in all four extremities. Pupils fixed. Spontaneous movement noted at times prior to transfer. Afebrile. 2 units of PRBC's given. A/C FIO2 50%. OG to LIS, Octreotide, Protonix infusing. XL blood stool. Distended abdomen, lactulose enema given. IV to R) wrist R) hand and L) hand infusing Octreotide, Protonix, and Propofol. Repositioned throughout shift. Oral cares provided, bloody. Transferred at 1410 via flight to [facility], Report given to Betsy at [phone]. Follow up: tranferred.
== END 2016-06-17 14:00 | disposition hospice, home (50) | DRG 441 ==
LOC: GMED 07:54 → GICU 08:53
PROVIDERS: Emergency Medicine; Registered Nurse; ADMIT Hospitalist
PROC: 30233N1 Transfusion of Nonautologous Red Blood Cells into Peripheral Vein, Percutaneous Approach (ICD-10-PCS; principal; 2016-06-17)
DX: K72.01 Acute and subacute hepatic failure with coma (principal); J96.01 Acute respiratory failure with hypoxia; J69.0 Pneumonitis due to inhalation of food and vomit; G93.1 Anoxic brain damage, not elsewhere classified; J90 Pleural effusion, not elsewhere classified; K65.2 Spontaneous bacterial peritonitis; I85.00 Esophageal varices without bleeding; D62 Acute posthemorrhagic anemia; K92.2 Gastrointestinal hemorrhage, unspecified; K70.31 Alcoholic cirrhosis of liver with ascites; Z87.891 Personal history of nicotine dependence
CPT/HCPCS: C9113; G0480; J0696; J2354; J2550; J2704; J2765; J3360; J7050; P9016

== ENCOUNTER → 2016-06-17 | Outpatient (CLI) | payer MEDICAID ==
[~2016-06-17] MED LIST changes: +CERTAVITE-ANTI1 EACH PO; +LEVAQUIN 750 M750 MG PO; +LOVENOX 8080 MG/0.8 SUB-Q; +PROTONIX40 MG PO; +THIAMINE HCL100 MG PO; +ZOFRAN4 MG PO
== END | disposition disaster alternative care site (69) ==
LOC: GAMB 07:22
DX: T65.91XA Toxic effect of unspecified substance, accidental (unintentional), initial encounter (principal); R40.20 Unspecified coma; E03.9 Hypothyroidism, unspecified; R41.82 Altered mental status, unspecified; R56.9 Unspecified convulsions; R06.2 Wheezing; Z79.2 Long term (current) use of antibiotics; Z79.899 Other long term (current) drug therapy; Z88.0 Allergy status to penicillin
CPT/HCPCS: A0422; A0425; A0427; J2310; J7030

== ENCOUNTER → 2016-06-17 | Outpatient (CLI) | payer MEDICAID | END | disposition disaster alternative care site (69) | LOC: GAIR 14:19 | DX: K76.9 Liver disease, unspecified (principal); K70.31 Alcoholic cirrhosis of liver with ascites; N18.6 End stage renal disease; K72.90 Hepatic failure, unspecified without coma; J96.90 Respiratory failure, unspecified, unspecified whether with hypoxia or hypercapnia; Z79.899 Other long term (current) drug therapy; Z88.2 Allergy status to sulfonamides | CPT/HCPCS: A0422; A0431; A0436 ==